=== PATIENT | male | born 1970 | race Caucasian/White ===

== ENCOUNTER 2019-03-04 09:49 | Inpatient (IN) ==
--- NOTE | 2019-03-04 09:59 | PDOC ---
Nausea/Vomiting/Diarrhea HPI - General Chief Complaint: Nausea / Vomiting / Diarrhea Stated Complaint: VOMITING SINCE NOON 03/03/19 Date Seen by Provider: 03/04/19 Time Seen by Provider: 09:54 Source: POSITIVE: Patient Exam Limitations: POSITIVE: No limitations Nurse's Notes Reviewed & Considered: Yes - History of Present Illness Initial Comments: This is a well-developed, well-nourished, very pleasant, 48-year-old male, complaining of nausea vomiting and abdominal pain. Patient with generalized abdominal pain that began yesterday and escalated overnight. At approximately midnight he developed vomiting and states that he has vomited so much that now is following up only bile and having dry heaves. He denies any blood in his emesis. He denies any diarrhea. He denies any fever or sweats but does have chills. He denies headache, no ringing in his ears, no blurry vision, no runny nose, no sore throat, no chest pain or shortness of breath, no cough, no hematuria or dysuria, no myalgias or arthralgias, no rashes. 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 He is uncertain as to the etiology of the ischemic bowel. Presently his pain is in a band across the periumbilical region. He states the greatest pain is in his left abdomen. Body Location Affected: REPORTS: Abdomen Timing: REPORTS: Abrupt Duration: <24 hours Severity: Severe Quality: REPORTS: Cramping, "Pain" Abdominal Pain Onset Location: REPORTS: Generalized abdomen Abdominal Pain Radiation: REPORTS: RLQ, LLQ, Periumbilical Context: REPORTS: None Modifying Factors: improves with: Nothing Associated Symptoms: REPORTS: Vomiting, Frequent Vomiting, Periumbilical Pain Similar Symptoms Previously: No Recent Care Received: REPORTS: Denies Any Prior Injuries Related to Current Complaint?: No - Patient Home Medications Home Medications: Home Medications amlodipine 10 mg tablet 10 mg PO QDAY #30 tab 02/04/19 diclofenac 1 % topical gel 2 g TOPICAL QID PRN #100 g 03/02/19 nebivolol 20 mg tablet 20 mg PO BID #60 tab 03/02/19 trazodone 50 mg tablet 50 mg PO QDAY #30 tab 03/02/19 venlafaxine ER 150 mg capsule,extended release 24 hr 150 mg PO QDAY #30 cap 03/02/19 - Patient Allergies Allergies/Adverse Reactions: Allergies Allergy/AdvReac Type Severity Reaction Status Date / Time No Known Allergies Allergy Verified 03/04/19 11:56 ROS - Limitations ROS Limitations: No Limitations Constitution: REPORTS: Chills Cardiovascular: REPORTS: Denies Cardiac Symptoms Respiratory: REPORTS: Denies Resp Symptoms Neurological: REPORTS: Denies Neuro Symptoms Gastrointestinal: REPORTS: Abdominal Pain, Nausea, Vomitting Endocrine: REPORTS: Denies Symptoms Musculoskeletal: REPORTS: Denies MS Symptoms Genitourinary: REPORTS: Denies Symptoms Eyes: REPORTS: Denies Symptoms ENT: REPORTS: Denies Symptoms Skin: REPORTS: Denies Skin Symptoms Lympathic: REPORTS: Denies Lympathic Symptoms Immunologic: POSITIVE: Denies Symptoms Psychiatric: POSITIVE: Denies Psych Symptoms Nausea/Vomiting/Diarrhea Exam - General Appearance General Appearance: POSITIVE: Alert, Cooperative, No Evidence of Trauma, Moderate Distress - HEENT HEENT: POSITIVE: Head Inspection Nml, Eyes Inspection Nml, Ears Inspection Nml, Nose Inspection Nml, Oral/Dental Inspect. Nml, Pharynx Inspect. Nml, PERRL, EOMI - Neck Neck: POSITIVE: Supple, Normal Inspection, Non Tender - Respiratory Respiratory: POSITIVE: No Respiratory Distress, Breath Sounds Normal, Chest Non- Tender - Cardiovascular Cardiovascular: POSITIVE: Heart Sounds Normal, Strong Pulses, Bradycardia Peripheral Pulses: Radial (R): 4+ - Chest Chest: POSITIVE: Non Tender - Abdomen Abdomen: Soft: (All Quadrants), No Splenomegaly: (All Quadrants), No Hepatomegaly: (All Quadrants), No Guarding: (LUQ), (RUQ), No Rebound: (LUQ), (RUQ), (LLQ), No Palpable Pulse: (All Quadrants), No Palpabale Mass: (All Quadrants), No Distention: (All Quadrants), No Rigidity: (All Quadrants), Tenderness Noted: (All Quadrants), Hypoactive Bowel Sounds: (All Quadrants), Guarding: (RLQ), (LLQ), Rebound: (RLQ) - Back Back: POSITIVE: Normal Inspection - Skin Skin: POSITIVE: Intact, Normal For Race, Warm, Dry, No Rash - Extremities Extremity: Non-Tender: (All Extremities), Normal ROM: (All Extremities), Normal Inspection: (All Extremities), Pelvis Stable: (All Extremities) - Neurological / Psychological Neurological: POSITIVE: Affect Apporpriate, Oriented X3, Motor Normal, Sensation Normal N/V/D Progress - Results Reviewed by me Xrays/CTs/US Reviewed by me: Yes Discussed with Radiologist: Yes Lab Results Reviewed by Me: Yes CBC and BMP: 03/04/19 10:00 03/04/19 10:00 Lab Results:: Laboratory Results 03/04/19 03/04/19 03/04/19 10:00 10:00 10:00 WBC 17.20 H RBC 5.50 Hgb 16.5 Hct 46.7 MCV 84.9 MCH 30.0 MCHC 35.3 RDW Std Deviation 39.4 RDW Coeff of Renita 12.6 Plt Count 345 MPV 9.5 Immature Gran % (Auto) 0.2 Neut % (Auto) 89.3 H Lymph % (Auto) 8.2 L [place] % (Auto) 2.2 L Eos % (Auto) 0 Baso % (Auto) 0.1 Immature Gran # (Auto) 0.03 Neut # (Auto) 15.37 Lymph # (Auto) 1.41 [place] # (Auto) 0.37 Eos # (Auto) 0 Baso # (Auto) 0.02 WBC Morphology Comment Normal morphology Plt Morphology Comment Normal morphology RBC Morph Comment Normal morphology ESR 2 VBG pH VBG pCO2 VBG HCO3 VBG Base Excess Sodium 139 Potassium 3.8 Chloride 102 Carbon Dioxide 24 Anion Gap 13 BUN 21 Creatinine 1.0 Estimated GFR > 60 BUN/Creatinine Ratio 21.00 H Glucose 152 H Calculated Osmolality 293.0 H Lactic Acid 1.9 Calcium 10.5 Magnesium 2.1 Total Bilirubin 1.0 AST 28 ALT 19 L Alkaline Phosphatase 97 C-Reactive Protein 1.5 H Total Protein 8.8 H Albumin 5.4 H Globulin 3.4 Albumin/Globulin Ratio 1.50 Amylase 74 Lipase 197 03/04/19 10:04 WBC RBC Hgb Hct MCV MCH MCHC RDW Std Deviation RDW Coeff of Renita Plt Count MPV Immature Gran % (Auto) Neut % (Auto) Lymph % (Auto) [place] % (Auto) Eos % (Auto) Baso % (Auto) Immature Gran # (Auto) Neut # (Auto) Lymph # (Auto) [place] # (Auto) Eos # (Auto) Baso # (Auto) WBC Morphology Comment Plt Morphology Comment RBC Morph Comment ESR VBG pH 7.58 H VBG pCO2 25 L VBG HCO3 24 VBG Base Excess 2 Sodium Potassium Chloride Carbon Dioxide Anion Gap BUN Creatinine Estimated GFR BUN/Creatinine Ratio Glucose Calculated Osmolality Lactic Acid Calcium Magnesium Total Bilirubin AST ALT Alkaline Phosphatase C-Reactive Protein Total Protein Albumin Globulin Albumin/Globulin Ratio Amylase Lipase - Patient's Progress Pain Medication Addressed: POSITIVE: Yes Re-examine Time: 12:07 Status: POSITIVE: Improved MDM / ED Course: Patient was evaluated, an IV started, blood drawn and sent to the lab for studies, CT examination of his abdomen was obtained. Findings: CBC shows a white count was 17.2 and a left shift with neutrophils of 89.3%, lymphocytes low at 8.2%, monocytes low at 2.2%. Platelets hemoglobin and hematocrit are normal. ESR is 2 and CRP is elevated at 1.5. Amylase is 74 and lipase is 197. Blood gases show a pH of 7.58, PCO2 of 25, bicarbonate of 24, base excess is 2. Lactic acid is 1.9 and magnesium is 2.1. CMP shows glucose 152, ALT of 19, total protein of 8.8, albumin of 5.4. CT scan of his abdomen shows high-grade small bowel obstruction. Assessment: Small bowel obstruction. Plan: I have discussed patient with both Dr. Darden and Dr. Cornejo. Dr. Cornejo admitting, and Dr. Darden will see the patient in consultation on the floor. - Consult Consult (If Yes, Name of Consulting MD & Time Called): Yes Consulting MD will see pt:: POSITIVE: [facility] Admit Counseled: POSITIVE: Patient, Family, RE: Lab Results, RE: Radiology Results, RE: DX, RE: Need for F/U Patient Care Time - Estimated PCT Patient Care Time (In Minutes): 45 Vital Signs - Recent Vital Signs Vital Signs: Vital Signs (Last 8 hours) Temp Pulse Resp BP Pulse Ox 03/04/19 10:28 96.9 F 51 L 14 159/106 99 - VS Reviewed Vital Signs Reviewed: Yes Discharge Clinical Impression: Small bowel obstruction Discharge Disposition: Admit to Inpatient Condition: Stable Follow Up With: Gabino Flores DNP [Primary Care Provider] - Date Decision to Admit to Inpatient: 03/04/19 Time Decision to Admit to Inpatient: 12:06
[2019-03-04] MEDS ORDERED: ONDANSETRON 4 MG/2 ML VIAL IVP ONE (10:00)
[2019-03-04] MEDS ORDERED: MORPHINE SULFATE 4 MG/1 ML IVP ONE ×2 (10:01→11:46)
[2019-03-04] MEDS ORDERED: Sodium Chloride 0.9% 1,000 ML PRIMARY IV ONE (10:01)
[2019-03-04 10:12] LABS: BASOPHILS # (AUTO) 0.02 10*3/UL; BASOPHILS % (AUTO) 0.1 % (0-1); EOSINOPHILS # (AUTO) 0 10*3/UL; EOSINOPHILS % (AUTO) 0 % (0-8); Hematocrit [HCT] 46.7 % (42.0-52.0); Hemoglobin [HGB] 16.5 g/dL (14.0-18.0); LYMPHOCYTES # (AUTO) 1.41 10*3/uL; MEAN CORPUSCULAR HGB CONC 35.3 g/dL (33-37); MEAN CORPUSCULAR VOLUME 84.9 FL (80-90); MEAN PLATELET VOLUME 9.5 FL (7.4-12.2); MONOCYTES # (AUTO) 0.37 10*3/UL (0.3-0.8); MONOCYTES % (AUTO) 2.2 % (5-15); NEUTROPHILS # (AUTO) 15.37 10*3/UL; NEUTROPHILS % (AUTO) 89.3 % (50-80)
[2019-03-04 10:14] LABS: VENOUS PH 7.58 (7.32-7.42)
[2019-03-04 10:27] LABS: BLOOD UREA NITROGEN 21 mg/dL (7-22); LIPASE 197 IU/L (23-300); SERUM ALBUMIN 5.4 g/dL (3.5-4.8)
[2019-03-04 10:28] LABS: PLATELET MORPHOLOGY COMMENT NORMAL MORPHOLOGY (NORM); RBC MORPHOLOGY COMMENT NORMAL MORPHOLOGY (NORM); WBC MORPHOLOGY COMMENT NORMAL MORPHOLOGY (NORM)
[2019-03-04 10:58] LABS: Erythrocyte Sediment Rate 2 MM/HR (0-15)
--- NOTE | 2019-03-04 11:53 | DI ---
CT ABDOMEN SCAN WITH IV CONTRAST, 03/04/2019 10:01 AM : Clinical History: Abdominal pain. Previous Exam: None at this facility. IV Contrast: 75 mL of Isovue 300. Oral Contrast: No oral contrast ordered. Rectal Contrast: No rectal contrast ordered. Lungs: No infiltrate or effusion. Liver: There are multiple low-density lesions scattered throughout the right and left lobes of the li cally in these range in size between 2-3-5 mm in diameter and are consistent with multiple small cysts. Gallbladder: Grossly normal. Adrenal Glands: Normal. Spleen: Normal. Pancreas: Normal. Kidneys: Normal size, shape, position and contour. No hydronephrosis or hydroureter. No renal or uret eral calculi. Masses: None. Lymph Nodes: Normal. Ascites: No ascites. Free Air: None. Spine: Normal lower thoracic and lumbar spine. READING: Normal CT abdomen scan. CT PELVIS SCAN WITH IV CONTRAST, 03/04/2019 10:01 AM: Clinical History: See above. Previous Exam: None at this facility. Contrast: Same bolus used for CT scans of the abdomen. Masses: No masses or enhancing lesions. Ascites: Small amount of fluid is present in the pelvis. Free Air: None. Lymph Nodes: No adenopathy. Appendix: Not identified. No cecal or right lower quadrant inflammatory mass. Small Bowel: The proximal and distal portions of the small bowel are decompressed but the mid small b owel is markedly dilated measuring up to 4 cm in diameter consistent with a high-grade partial small bowel obstruction. Colon: Stool is present in the cecum and ascending colon but the remainder of the colon is completely decompressed. The patient apparently is status post resection of the sigmoid colon with an end-to-en d anastomosis at the level of S1. Bladder: Normal. Hernias: None. Bony Pelvis: Normal sacrum, pelvic bones, and hips. READIN. High-grade partial small bowel obstruction. 2. Status post resection of the sigmoid colon with an end to end anastomosis at the level of S1.
--- NOTE | 2019-03-04 13:55 | CONSULT ---
Consult Note - Consult Consult Date: 03/04/19 Reason for Consult: PreOp Consulation : General Surgery Requesting Physician: Dr. Stu Moy Primary Care Provider: Gabino Flores DNP - History of Present Illness History of Present Illness: This is 48-year-old male who yesterday started having abdominal pain. He states that is crampy and is feeling bloated. At midnight he started having vomiting. He states that worse from 3 AM therefore he came to the emergency department. Patient states that he still passing flatus. He states that since it with the NG tube down they fell a lot better. Patient has CT scan that showed a partial small bowel obstruction. Patient denies any hematochezia hematemesis or melena. Review of Systems - Constitutional Constitutional: REPORTS: Negative System Review, General Health Excellent - Integumentary Integumentary: REPORTS: Negative System Review - Eye Exam Eye Exam: REPORTS: Negative System Review - Ear/Nose Exam Ear/Nose Exam: REPORTS: Negative System Review - Mouth/Throat Mouth/Throat Exam: REPORTS: Negative System Review - Respiratory Respiratory: REPORTS: Negative System Review - Cardiovascular Cardiovascular: REPORTS: Negative System Review - Gastrointestinal Gastrointestinal / Abdominal: REPORTS: Nausea, Vomiting, Abdominal Pain - Genitourinary Genitourinary: REPORTS: Negative System Review - Musculoskeletal Musculoskeletal: REPORTS: Negative System Review - Hematlogic / Lymphatic Hematologic / Lymphatic: REPORTS: Negative System Review - Neurological Neurologic: REPORTS: Negative System Review - Psychiatric Psychiatric: REPORTS: Negative System Review Past Medical History Medical History: Hypertension and anxiety Surgical History: Sigmoid colectomy and appendectomy Pertinent Family History: Negative Tobacco Use: Never Smoker In the Past 12 Months, Have Used or Abuse Any of the Following Substance: None Medication / Allergies Home Medications: Home Medications Medication Instructions Recorded Confirmed Type amlodipine 10 mg tablet 10 mg PO QDAY #30 tab 02/04/19 03/04/19 Rx diclofenac 1 % topical gel 2 g TOPICAL QID PRN #100 g 03/02/19 03/04/19 Rx nebivolol 20 mg tablet 20 mg PO BID #60 tab 03/02/19 03/04/19 Rx trazodone 50 mg tablet 50 mg PO QDAY #30 tab 03/02/19 03/04/19 Rx venlafaxine ER 150 mg 150 mg PO QDAY #30 cap 03/02/19 03/04/19 Rx capsule,extended release 24 hr Allergies/Adverse Reactions: Allergies Allergy/AdvReac Type Severity Reaction Status Date / Time No Known Allergies Allergy Verified 03/04/19 11:56 Results - Labs CBC and BMP: 03/04/19 10:00 03/04/19 10:00 Exam - Vitals Vital Signs: Vital Signs Temperature 96.9 F Temperature Source Temporal Artery Scan Pulse Rate [Pulse Oximeter] 51 Respiratory Rate 14 Blood Pressure [Left Arm] 159/106 Pulse Ox 99 Oxygen Delivery Method Room Air Height 6 ft 1 in Weight 185 lb - General General Appearance: No Acute Distress, Cooperative - Head Head Exam: Normal Inspection - Eye Eye Exam: POSITIVE: PERRL, EOMI - Respiratory Respiratory Exam: POSITIVE: Clear to Auscultation - Bilaterally, Breathing Non Labored - GI/Abdominal GI/Abdominal Exam: POSITIVE: Normal Bowel Sounds, Non Tender, Non Distended, Soft Additional GI/Abdominal Exam Details: No incisional hernias No inguinal hernias No rigidity or guarding noted Assessment and Plan - Patient Problems (1) Small bowel obstruction Current Visit: Yes Status: Acute Code(s): K56.609 - Unspecified intestinal obstruction, unspecified as to partial versus complete obstruction - Assessment / Plan Additional Assessment/Plan Details: At this point the patient does look like he has his partial small bowel obstruction. Given the fact that his abdomen soft nontender and he is feeling better since an NG tube in place I do not think surgery is indicated at this césar e. Will get a normal films in the a.m. Nothing by mouth. NG low intermittent suction. IV fluids as needed.
[2019-03-04] MEDS ORDERED: DOCUSATE 100 MG CAPSULE PO PRN (14:30)
[2019-03-04] MEDS ORDERED: CALCIUM CARBONATE 500 MG (TUMS) CHEWABLE TABLET PO PRN (14:30)
[2019-03-04] MEDS ORDERED: HYDROmorphone 2 MG/1 ML IVP PRN (14:30)
[2019-03-04] MEDS ORDERED: LIDOCAINE W/ SODIUM BICARB 0.5 ML SYR SUBD PRN (14:30)
[2019-03-04] MEDS ORDERED: ACETAMINOPHEN 325 MG TABLET PO PRN (14:30)
[2019-03-04] MEDS: D5-1/2NS + 20mEq KCL 1,000 ML PRIMARY IV SCH ×2 (15:00→22:49)
[2019-03-04] MEDS: HYDROmorphone 2 MG/1 ML IVP PRN ×2 (17:42→21:09)
[2019-03-04] MEDS: ONDANSETRON 4 MG/2 ML VIAL IVP PRN (17:49)
--- NOTE | 2019-03-04 19:38 | PDOC ---
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 He came in stating that he had acute onset of abdominal pain yesterday, associated with nausea and vomiting. He tried Pepto-Bismol without any help. He denied any fevers, but due to the continued pain with nausea and vomiting he came in for evaluation. He intermittently has passed gas and not had any flatulence, he has not had a bowel movement lately. A CT scan was significant for small bowel obstruction that was called high-grade on the reading. An NG tube was placed and he immediately had 500 mL of gastric contents removed. He has been on low intermittent wall suction and does feel better but has had some nausea through the day. A consult with surgery and he was seen by surgeon and was felt that we could manage conservatively at least initially. Lactic acid was normal. His pain was improved with morphine in the emergency room. He had an anastomosis problem that was treated with colonoscopy a couple of years ago, but has not had any recurrent abdominal surgeries since then. Past Medical History Medical History: Hypertension and anxiety Surgical History: Sigmoid colectomy and appendectomy, colonoscopy to repair some sort of anastomotic issue Pertinent Family History: No family history of colon cancer or blood clots. Past Social History: Does not smoke or drink alcohol. Recently . Has 2 children described as healthy. 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 Tobacco Use: Never Smoker In the Past 12 Months, Have Used or Abuse Any of the Following Substance: None Alcohol Use: None Medication / Allergies Home Medications: Home Medications Medication Instructions Recorded Confirmed Type amlodipine 10 mg tablet 10 mg PO QDAY #30 tab 02/04/19 03/04/19 Rx diclofenac 1 % topical gel 2 g TOPICAL QID PRN #100 g 03/02/19 03/04/19 Rx nebivolol 20 mg tablet 20 mg PO BID #60 tab 03/02/19 03/04/19 Rx trazodone 50 mg tablet 50 mg PO QDAY #30 tab 03/02/19 03/04/19 Rx venlafaxine ER 150 mg 150 mg PO QDAY #30 cap 03/02/19 03/04/19 Rx capsule,extended release 24 hr Allergies/Adverse Reactions: Allergies Allergy/AdvReac Type Severity Reaction Status Date / Time No Known Allergies Allergy Verified 03/04/19 11:56 Review of Systems - Review of Systems All Systems: Reviewed & No Additional Complaints Except as Stated (I did a 12 point review systems and it was negative other than that discussed below and in the history of present illness.) Exam - Vitals Vital Signs: Vital Signs Temperature 97.2 F Temperature Source Temporal Artery Scan Pulse Rate [Pulse Oximeter] 67 Respiratory Rate 18 Blood Pressure [Left Arm] 132/80 Pulse Ox 92 Oxygen Delivery Method Room Air Height 6 ft 1 in Weight 185 lb - General General Appearance: No Acute Distress, Cooperative - Head Head Exam: Normal Inspection, Normocephalic, Atraumatic - Eye Eye Exam: POSITIVE: No Scleral Icterus - ENT ENT Exam: POSITIVE: Mucous Membranes Moist - Neck Neck Exam: Normal Inspection, No Tenderness, No Lymphadenopathy, No Thyromegaly, JVP is not Raised - Respiratory Respiratory Exam: POSITIVE: Clear to Auscultation - Bilaterally, Breathing Non Labored - Cardiovascular Cardiovascular Exam: POSITIVE: RRR, No Murmur, No Clicks, No Gallops, No Rubs, No JVD - GI/Abdominal GI/Abdominal Exam: POSITIVE: Non Tender, Non Distended, Soft, Hypoactive Bowel Sounds Additional GI/Abdominal Exam Details: NG tube are in place with low intermittent wall suctioning at about 500 mL out here for a total of about 1000 - Rectal Rectal Exam: POSITIVE: Deferred - External Exam: POSITIVE: Deferred Exam: POSITIVE: Deferred - Extremities Extremities Exam: POSITIVE: No Clubbing Present, No Edema Present, No Cyanosis Present - Back Back Exam: POSITIVE: No CVA Tenderness - Neurological Neurological Exam: POSITIVE: Alert, Oriented x 3, No Facial Droop, Speech Intact / Clear, Moves All Extremities Equally - Psychiatric Psychiatric Exam: POSITIVE: Normal Affect, Normal Mood Results - Labs CBC and BMP: 03/04/19 10:00 03/04/19 10:00 Additional Lab Results: Laboratory Results 03/04/19 03/04/19 03/04/19 10:00 10:00 10:00 WBC 17.20 H RBC 5.50 Hgb 16.5 Hct 46.7 MCV 84.9 MCH 30.0 MCHC 35.3 RDW Std Deviation 39.4 RDW Coeff of Renita 12.6 Plt Count 345 MPV 9.5 Immature Gran % (Auto) 0.2 Neut % (Auto) 89.3 H Lymph % (Auto) 8.2 L [place] % (Auto) 2.2 L Eos % (Auto) 0 Baso % (Auto) 0.1 Immature Gran # (Auto) 0.03 Neut # (Auto) 15.37 Lymph # (Auto) 1.41 [place] # (Auto) 0.37 Eos # (Auto) 0 Baso # (Auto) 0.02 WBC Morphology Comment Normal morphology Plt Morphology Comment Normal morphology RBC Morph Comment Normal morphology ESR 2 VBG pH VBG pCO2 VBG HCO3 VBG Base Excess Sodium 139 Potassium 3.8 Chloride 102 Carbon Dioxide 24 Anion Gap 13 BUN 21 Creatinine 1.0 Estimated GFR > 60 BUN/Creatinine Ratio 21.00 H Glucose 152 H Calculated Osmolality 293.0 H Lactic Acid 1.9 Calcium 10.5 Magnesium 2.1 Total Bilirubin 1.0 AST 28 ALT 19 L Alkaline Phosphatase 97 C-Reactive Protein 1.5 H Total Protein 8.8 H Albumin 5.4 H Globulin 3.4 Albumin/Globulin Ratio 1.50 Amylase 74 Lipase 197 03/04/19 03/04/19 10:04 15:57 WBC RBC Hgb Hct MCV MCH MCHC RDW Std Deviation RDW Coeff of Renita Plt Count MPV Immature Gran % (Auto) Neut % (Auto) Lymph % (Auto) [place] % (Auto) Eos % (Auto) Baso % (Auto) Immature Gran # (Auto) Neut # (Auto) Lymph # (Auto) [place] # (Auto) Eos # (Auto) Baso # (Auto) WBC Morphology Comment Plt Morphology Comment RBC Morph Comment ESR VBG pH 7.58 H VBG pCO2 25 L VBG HCO3 24 VBG Base Excess 2 Sodium Potassium Chloride Carbon Dioxide Anion Gap BUN Creatinine Estimated GFR BUN/Creatinine Ratio Glucose Calculated Osmolality Lactic Acid Calcium Magnesium 2.2 Total Bilirubin AST ALT Alkaline Phosphatase C-Reactive Protein Total Protein Albumin Globulin Albumin/Globulin Ratio Amylase Lipase - Imaging Status: Image Reviewed by Me (I looked at the CT scan of the abdomen and pelvis. There appears to be some decompressed small bowel and dilated loops of small bowel consistent with a possible obstruction. I read the radiology report as well.) Assessment and Plan - Patient Problems (1) Small bowel obstruction Current Visit: Yes Status: Acute Code(s): K56.609 - Unspecified intestinal obstruction, unspecified as to partial versus complete obstruction (2) Anxiety Current Visit: Yes Status: Chronic Code(s): F41.9 - Anxiety disorder, u nspecified (3) Hypertension Current Visit: Yes Status: Chronic Code(s): I10 - Essential (primary) hypert ension Qualifiers: Hypertension type: essential hypertension Qualified Code(s): I10 - Essential (primary) hypertension - Assessment / Plan Additional Assessment/Plan Details: Admit the patient. Consult surgery. IV fluids, electrolyte replacement, as indicated, and check labs in a.m. Given the history of the prior sigmoid infarction, with no clear etiology, I think it would be reasonable to do a thrombophilia profile and make sure that we do not have the patient with factor V Leiden or antithrombin III deficiency as an example. I told the patient that this profile may take a week or so to get back and that he'll have to review this with his primary provider to make decisions about the meaning of that profile and whether or not to consider anticoagulation. This would be a very complex choice and I discussed this with the patient giving the risks and benefits of bleeding versus potential clot prevention should he have a positive profile. Nothing by mouth and NG tube to low intermittent wall suction. Pain medications, through the IV, and antiemetics as well. Patient agrees to proceed with the plan above.
[2019-03-04] MEDS: ATENOLOL 50 MG TABLET PO SCH (20:10)
[2019-03-04] MEDS: traZODone Tab 50 MG TAB PO SCH (20:10)
[2019-03-05 04:48] LABS: BASOPHILS # (AUTO) 0.01 10*3/UL; BASOPHILS % (AUTO) 0.2 % (0-1); EOSINOPHILS # (AUTO) 0.14 10*3/UL; EOSINOPHILS % (AUTO) 2.2 % (0-8); Hematocrit [HCT] 44.4 % (42.0-52.0); Hemoglobin [HGB] 14.8 g/dL (14.0-18.0); LYMPHOCYTES # (AUTO) 1.67 10*3/uL; MEAN CORPUSCULAR HEMOGLOBIN 30.1 PG (27-31); MEAN CORPUSCULAR HGB CONC 33.3 g/dL (33-37); MEAN CORPUSCULAR VOLUME 90.2 FL (80-90); MEAN PLATELET VOLUME 9.8 FL (7.4-12.2); MONOCYTES # (AUTO) 1.49 10*3/UL (0.3-0.8); MONOCYTES % (AUTO) 22.9 % (5-15); NEUTROPHILS # (AUTO) 3.17 10*3/UL; NEUTROPHILS % (AUTO) 48.7 % (50-80); RED BLOOD COUNT 4.92 10^6/uL (4.70-6.10)
[2019-03-05 05:02] LABS: PLATELET MORPHOLOGY COMMENT NORMAL MORPHOLOGY (NORM); WBC MORPHOLOGY COMMENT NORMAL MORPHOLOGY (NORM)
[2019-03-05 05:03] LABS: BLOOD UREA NITROGEN 19 mg/dL (7-22); BUN/CREATININE RATIO 17.27 (6-20); SERUM ALBUMIN 3.8 g/dL (3.5-4.8)
[2019-03-05] MEDS: D5-1/2NS + 20mEq KCL 1,000 ML PRIMARY IV SCH ×3 (06:47→23:51)
[2019-03-05] MEDS: HYDROmorphone 2 MG/1 ML IVP PRN ×2 (06:47→15:48)
--- NOTE | 2019-03-05 08:51 | DI ---
KUB, 03/05/2019 7:00 AM: Clinical History: Followup fraction. Previous Exam: None at this facility. Soft Tissues: Normal. Bowel Pattern: Normal bowel gas pattern, psoas margins, and flank stripes. No dilated loops of small bowel are noted. Free Air: None. Ascites: None. Radiodensities: No abnormal radiodensities. Contrast is present in the bladder from the recent CT sca n of the abdomen and pelvis with IV contrast. Bones: Normal. Reading: Normal KUB exam.
[2019-03-05] MEDS: VENLAFAXINE HCL XR 150 MG CAP PO SCH (09:31)
[2019-03-05] MEDS: ATENOLOL 50 MG TABLET PO SCH ×2 (09:31→20:20)
--- NOTE | 2019-03-05 13:38 | PDOC(PROG) ---
Date of Service: 03/05/19 Time of Service: 13:35 Interval History: Patient seen and evaluated earlier today. No complaints of chest pain, shortness of breath. Nausea has improved, abdominal pain has improved. No flatulence and no stools. Objective : Data - Labs CBC and BMP: 03/05/19 03:59 03/05/19 03:59 Additional Lab Results: 03/05/19 03:59 Magnesium 2.6 H Total Bilirubin 0.7 AST 31 ALT 15 L Alkaline Phosphatase 59 Total Protein 6.6 Albumin 3.8 Globulin 2.7 Objective : Exam - General General Appearance: No Acute Distress, Cooperative Additional General Exam Details: Vital Signs - Last Taken Temperature 97.5 F 03/05/19 12:34 Pulse Rate 56 L 03/05/19 12:34 Respiratory Rate 16 03/05/19 12:34 Blood Pressure 111/77 03/05/19 12:34 Pulse Ox 94 03/05/19 12:34 - Eye Eye Exam: No Scleral Icterus - ENT ENT Exam: Mucous Membranes Moist - Neck Neck Exam: JVP is not Raised - Respiratory Respiratory Exam: Clear to Auscultation - Bilaterally, Breathing Non Labored - Cardiovascular Cardiovascular Exam: No Murmur, No Clicks, No Gallops, No Rubs, Bradycardia, No JVD - GI/Abdominal GI/Abdominal Exam: Non Tender, Non Distended, Soft, Diminished Bowel Sounds, Hypoactive Bowel Sounds - Extremities Extremities Exam: No Clubbing Present, No Edema Present, No Cyanosis Present - Neurological Neurological Exam: Alert, Oriented x 3, No Facial Droop, Speech Intact / Clear, Moves All Extremities Equally Assessment and Plan - Patient Problems (1) Small bowel obstruction Current Visit: Yes Status: Acute Code(s): K56.609 - Unspecified intestinal obstruction, unspecified as to partial versus complete obstruction (2) Anxiety Current Visit: Yes Status: Chronic Code(s): F41.9 - Anxiety disorder, unspecified (3) Hypertension Current Visit: Yes Status: Chronic Code(s): I10 - Essential (primary) hyp ertension Qualifiers: Hypertension type: essential hypertension Qualified Code(s): I10 - Essential (primary) hypertension - Assessment / Plan Additional Assessment/Plan Details: At this point, he had at least 400 mL out from the last time I saw him yesterday on NG tube. It still over 250 mL so I'll leave the NG tube placed. Any diet advancement would be as per surgery. Continue IV fluids, electrolyte replacement, and check labs again in a.m. along with acute abdominal series with NG tube clamping prior procedure.
--- NOTE | 2019-03-05 14:58 | PDOC(PROG) ---
Date of Service: 03/05/19 Time of Service: 14:55 Interval History: Feels much better with the NG tube in. Still has some abdominal tenderness and cramping. No bowel movement. He reports he has passed some gas. Not nauseated. 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 He was unable to have a colonoscopy. He went to surgery and had a colectomy with colostomy. That was subsequently reversed. He has not had any problems like this since. He denies any recent dietary indiscretion. Objective : Data - Labs CBC and BMP: 03/05/19 03:59 03/05/19 03:59 - Imaging Imaging Details: Today's x-ray was read as normal. It does not show was upper abdomen and her diaphragms. I think there is still some dilated loops of small bowel but less so. There is gas and what appears to be stool in the rectum. - Vital Signs Vital Signs and I&O: Vital Signs - Last Taken Temperature 97.5 F 03/05/19 12:34 Pulse Rate 56 L 03/05/19 12:34 Respiratory Rate 16 03/05/19 12:34 Blood Pressure 111/77 03/05/19 12:34 Pulse Ox 94 03/05/19 12:34 Intake and Output (24hr x 4 totals) 03/03/19 03/04/19 03/05/19 03/06/19 05:59 05:59 05:59 05:59 Intake Total 2585 / 2585 Output Total 800 / 800 850 / 850 Balance 1785 / 1785 -850 / -850 Objective : Exam - General General Appearance: Cooperative, Mild Distress - Respiratory Respiratory Exam: Clear to Auscultation - Bilaterally, Breathing Non Labored - Cardiovascular Cardiovascular Exam: RRR, No Murmur - GI/Abdominal GI/Abdominal Exam: Soft, Diminished Bowel Sounds Additional GI/Abdominal Exam Details: Diffusely tender. Nonfocal. Not a surgical abdomen. Minimal distention. - Rectal Rectal Exam: Deferred - Neurological Neurological Exam: Alert, Oriented x 3 - Psychiatric Psychiatric Exam: Normal Affect, Normal Mood Assessment and Plan - Patient Problems (1) Partial obstruction of small intestine Current Visit: Yes Status: Acute Priority: High Onset Date: 03/03/19 Comment: Improved. NG tube has a total of 900 mL out since insertion. A little over 100 out since 6 AM this morning. Patient is passing a little bit of gas. Agree with leaving the NG tube in place. Three-way abdominal series and labs ordered for the morning. If he continues to pass gas and/or has a bowel movement and the x-rays improved would discontinue the NG tube and start clear liquids. If not the next step would be a Gastrografin challenge. If he has improved there is no reason for me to see him in the morning. If not please call and order the Gastrografin challenge and I will see him. Code(s): K56.600 - Partial intestinal obstruction, unspecified as to cause
[2019-03-05] MEDS: ONDANSETRON 4 MG/2 ML VIAL IVP PRN (15:48)
[2019-03-05] MEDS: traZODone Tab 50 MG TAB PO SCH (20:21)
[2019-03-06] MEDS: ONDANSETRON 4 MG/2 ML VIAL IVP PRN ×2 (00:22→08:52)
[2019-03-06] MEDS: HYDROmorphone 2 MG/1 ML IVP PRN ×7 (00:26→21:17)
[2019-03-06 05:20] LABS: BASOPHILS # (AUTO) 0.01 10*3/UL; BASOPHILS % (AUTO) 0.2 % (0-1); EOSINOPHILS # (AUTO) 0.13 10*3/UL; EOSINOPHILS % (AUTO) 2.2 % (0-8); Hematocrit [HCT] 42.3 % (42.0-52.0); Hemoglobin [HGB] 13.9 g/dL (14.0-18.0); LYMPHOCYTES # (AUTO) 1.55 10*3/uL; MEAN CORPUSCULAR HEMOGLOBIN 30.5 PG (27-31); MEAN CORPUSCULAR HGB CONC 32.9 g/dL (33-37); MEAN PLATELET VOLUME 9.6 FL (7.4-12.2); MONOCYTES # (AUTO) 1.05 10*3/UL (0.3-0.8); MONOCYTES % (AUTO) 18.2 % (5-15); NEUTROPHILS # (AUTO) 3.03 10*3/UL; NEUTROPHILS % (AUTO) 52.4 % (50-80); RED BLOOD COUNT 4.55 10^6/uL (4.70-6.10)
[2019-03-06 05:32] LABS: PLATELET MORPHOLOGY COMMENT NORMAL MORPHOLOGY (NORM); RBC MORPHOLOGY COMMENT NORMAL MORPHOLOGY (NORM); WBC MORPHOLOGY COMMENT NORMAL MORPHOLOGY (NORM)
[2019-03-06 05:41] LABS: BLOOD UREA NITROGEN 19 mg/dL (7-22); SERUM ALBUMIN 3.3 g/dL (3.5-4.8)
[2019-03-06] MEDS: VENLAFAXINE HCL XR 150 MG CAP PO SCH ×2 (08:52→11:51)
[2019-03-06] MEDS: ATENOLOL 50 MG TABLET PO SCH ×2 (08:52→11:51)
[2019-03-06] MEDS: D5-1/2NS + 20mEq KCL 1,000 ML PRIMARY IV SCH ×2 (08:53→22:18)
--- NOTE | 2019-03-06 09:43 | DI ---
ACUTE ABDOMINAL SERIES: HISTORY: 48-year-old male with SBO. COMPARISON: Abdomen and pelvis CT with intravenous contrast 03/04/2019; one view abdomen 03/05/2019. FINDINGS: Supine and upright views of the abdomen demonstrate long air- fluid levels within several small as well as probable large bowel loops in the upper and mid abdomen; there is at least mild to moderate dilation of the partially gas-filled small bowel loops.. No obvious ascites or pneumoperitoneum. Surgical clips/anastomotic suture is noted in the pelvis, as before. New NG tube terminates in the region of the gastric body. Frontal view of the chest demonstrates clear lungs. Heart size is normal. No obvious pneumothorax or effusion. IMPRESSION: Persistent at least partial mechanical SBO.
--- NOTE | 2019-03-06 10:25 | PDOC(PROG) ---
Date of Service: 03/06/19 Time of Service: 10:21 Interval History: Feels much more nauseous today. Has tender abdomen. No chest pain and no shortness of breath. Not passing any gas. Objective : Data - Labs CBC and BMP: 03/06/19 04:13 03/06/19 04:13 - Imaging X-Ray Status: Image Reviewed by Me (On acute abdominal series review, I see some air- fluid levels and some dilated loops of small bowel and it looks decompressed distally. I think there is still small bowel obstruction.) Objective : Exam - General General Appearance: No Acute Distress, Cooperative Additional General Exam Details: Vital Signs - Last Taken Temperature 97.2 F 03/06/19 06:30 Pulse Rate 50 L 03/06/19 07:00 Respiratory Rate 18 03/06/19 06:30 Blood Pressure 122/79 03/06/19 06:30 Pulse Ox 100 03/06/19 06:30 - Eye Eye Exam: No Scleral Icterus - ENT ENT Exam: Mucous Membranes Moist - Neck Neck Exam: JVP is not Raised - Respiratory Respiratory Exam: Clear to Auscultation - Bilaterally, Breathing Non Labored - Cardiovascular Cardiovascular Exam: No Murmur, No Clicks, No Gallops, No Rubs, Bradycardia, No JVD - GI/Abdominal GI/Abdominal Exam: Non Distended, Soft Additional GI/Abdominal Exam Details: Tender to palpation, I don't appreciate great bowel sounds today - Extremities Extremities Exam: No Clubbing Present, No Edema Present, No Cyanosis Present - Neurological Neurological Exam: Alert, Oriented x 3, No Facial Droop, Speech Intact / Clear, Moves All Extremities Equally Assessment and Plan - Patient Problems (1) Small bowel obstruction Current Visit: Yes Status: Acute Code(s): K56.609 - Unspecified intestinal obstruction, unspecified as to partial versus complete obstruction (2) Anxiety Current Visit: Yes Status: Chronic Code(s): F41.9 - Anxiety disorder, unspecified (3) Hypertension Current Visit: Yes Status: Chronic Code(s): I10 - Essential (primary) hypertension Qualifiers: Hypertension type: essential hypertension Qualified Code(s): I10 - Essential (primary) hypertension - Assessment / Plan Additional Assessment/Plan Details: Given worsening of symptoms, and findings on acute abdominal series, I spoke with surgery. Patient may likely go to the operating room. I will get a lactic acid as well. Labs in a.m. I spoke with the patient, he is aware that his x-ray still suggesting bowel obstruction despite conservative therapy with NG tube. Continue NG tube at low intermittent wall suction, antiemetics, and medications for pain. Electrolyte replacement as necessary.
[2019-03-06] MEDS ORDERED: Lactated Ringers 1,000 ML PRIMARY IV ONE ×3 (11:30→15:10)
--- NOTE | 2019-03-06 11:41 | PDOC(PROG) ---
Date of Service: 03/06/19 Time of Service: 11:25 Interval History: Patient was very miserable this morning when the NG tube was clamped for his x- ray. Increased nausea and abdominal pain. X-ray shows dilated loops of small bowel with multiple air-fluid levels. There is no air in the descending colon. This is consistent with a high-grade partial small bowel obstruction. Two separate radiologists have reviewed this film and feel it is consistent with at least a high-grade partial small bowel obstruction Patient reports he is not better and is not particularly worse. He still has diffuse abdominal pain. He is nauseated even with the NG tube in place. No vomiting. No further flatus or bowel movements. Objective : Data - Labs CBC and BMP: 03/06/19 04:13 03/06/19 04:13 - Imaging Imaging Details: See history of present illness. X-ray consistent with at least a partial high- grade small bowel obstruction. - Vital Signs Vital Signs and I&O: Vital Signs - Last Taken Temperature 98.9 F 03/06/19 11:28 Pulse Rate 64 03/06/19 11:28 Respiratory Rate 18 03/06/19 11:28 Blood Pressure 124/77 03/06/19 11:28 Pulse Ox 94 03/06/19 11:28 Intake and Output (24hr x 4 totals) 03/04/19 03/05/19 03/06/19 03/07/19 05:59 05:59 05:59 05:59 Intake Total 2585 / 2585 2994 / 2994 Output Total 800 / 800 1125 / 1125 50 / 50 Balance 1785 / 1785 1869 / 1869 -50 / -50 Objective : Exam - General General Appearance: Cooperative, Mild Distress - Respiratory Respiratory Exam: Clear to Auscultation - Bilaterally, Breathing Non Labored - Cardiovascular Cardiovascular Exam: RRR, No Murmur - GI/Abdominal GI/Abdominal Exam: Non Distended, Hypoactive Bowel Sounds Additional GI/Abdominal Exam Details: Diffusely tender in the epigastrium and bilateral lower quadrants. No signs of peritoneal irritation. Minimal bowel tones. Not particularly distended. - Rectal Rectal Exam: Deferred - Neurological Neurological Exam: Alert, Oriented x 3 - Psychiatric Psychiatric Exam: Normal Affect, Normal Mood Assessment and Plan - Patient Problems (1) Partial obstruction of small intestine Current Visit: Yes Status: Acute Priority: High Onset Date: 03/03/19 Comment: No improvement after approximately 48 hours of conservative care. Persisting abdominal tenderness worrisome. At this point I believe we need to proceed with exploratory laparotomy to make sure he has no compromised bowel. I don't think further x-rays would be of benefit. I have discussed this with the patient, his father, and a friend. Proceed with exploratory laparotomy with lysis of adhesions and possible small bowel resection. The possibility of an ostomy has been discussed.The procedure has been discussed with the patient in complete yet simple terms including benefits, risks, and alternatives. All ques tions have been answered. Informed consent has been obtained. Code(s): K56.600 - Partial intestinal obstruction, unspecified as to cause
[2019-03-06] MEDS ORDERED: Nasal Sanitizer POPSWAB ampule 3 AMP (Nozin) PREOP DOSE ENOS SCH (11:45)
[2019-03-06] MEDS ORDERED: ROCURONIUM 10 MG/1 ML - 5 ML VIAL IVP ONE ×3 (11:45→13:52)
[2019-03-06] MEDS ORDERED: Lactated Ringers 1,000 ML PRIMARY IV SCH ×2 (11:45→12:15)
[2019-03-06] MEDS ORDERED: Ertapenem Inj 1 GM in Sodium Chloride 0.9% 100 ML IV SCH (11:45)
[2019-03-06] MEDS ORDERED: LIDOCAINE MPF 2% - 5 ML (20 MG/1 ML) ONE (11:46)
[2019-03-06] MEDS ORDERED: PROPOFOL 10 MG/1 ML (200 MG/20 ML) VIAL IV ONE (11:46)
[2019-03-06] MEDS ORDERED: MIDAZOLAM HCL 2 MG/2 ML VIAL ONE (11:46)
[2019-03-06] MEDS ORDERED: fentaNYL Inj 250 MCG/5 ML VIAL ONE (11:46)
[2019-03-06] MEDS ORDERED: PROMETHAZINE 25 MG/1 ML VIAL IM PRN (12:03)
[2019-03-06] MEDS ORDERED: fentaNYL Inj 100 MCG/2 ML VIAL IVP PRN (12:03)
[2019-03-06] MEDS ORDERED: LIDOCAINE W/ SODIUM BICARB 0.5 ML SYR SUBD PRN ×2 (12:03→16:38)
[2019-03-06] MEDS ORDERED: BUPIVACAINE 0.25% W/ EPI - 10 ML VIAL ONE (12:09)
[2019-03-06] MEDS ORDERED: LIDOCAINE HCL 2 % 10 ML JELLY URO-JECT TOPICAL ONE ×2 (12:09→15:57)
[2019-03-06] MEDS ORDERED: BUPivacaine Liposome/PF (Exparel) Inj 20ml vial INFIL ONE (12:46)
[2019-03-06] MEDS ORDERED: Sodium Chloride 0.9% vial 40 ML ONE (12:46)
[2019-03-06] MEDS ORDERED: KETAMINE HCL 100 MG/2 ML SYRINGE IV ONE (12:47)
[2019-03-06] MEDS ORDERED: Sodium Chloride 0.9% 0 ML IV ONE (13:06)
[2019-03-06] MEDS ORDERED: ERTAPENEM 1 GM VIAL ONE (13:06)
[2019-03-06] MEDS ORDERED: ONDANSETRON 4 MG/2 ML VIAL ONE (13:35)
[2019-03-06] MEDS ORDERED: GLYCOPYRROLATE 0.2 MG/1 ML VIAL ONE (13:35)
[2019-03-06] MEDS ORDERED: SUGAMMADEX SODIUM 200 MG/2 ML VIAL IV ONE (14:41)
[2019-03-06] MEDS ORDERED: HYDROmorphone 2 MG/1 ML ONE ×2 (14:41→15:49)
[2019-03-06] MEDS ORDERED: KETOROLAC 30 MG/1 ML VIAL ONE ×2 (15:06)
[2019-03-06] MEDS ORDERED: LIDOCAINE W/ SODIUM BICARB 0.5 ML SYR ONE (15:38)
--- NOTE | 2019-03-06 15:47 | CRNA.PROGR ---
Anesthesia Recovery Phase I - Post Anesthesia Evaluation Patient's Condition on Arrival in Phase I: Stable Pain Level: 6
--- NOTE | 2019-03-06 15:47 | CRNA.PROGR ---
Anesthesia Time - Procedure/Recovery Time Start Date: 03/06/19 End Date: 03/06/19 Anesthesia : Time In: 12:20 Anesthesia : Time Out: 15:40 Anesthesia : Total Time: 200 - Total Anesthesia Time Total Anesthesia Time (minutes): 200 - Other Weight: 82.01 kg Height: 6 ft 1 in Body Mass Index (BMI): 23.8 Physical Status: P2 Anesthesia Type: General Anesthesia : ET
--- NOTE | 2019-03-06 15:59 | GEN.OPNOTE ---
Operative Note Surgery Date: 03/06/19 Preoperative Diagnosis: High-grade partial small bowel obstruction Postoperative Diagnosis: High-grade partial small bowel obstruction secondary to an adhesive band with multiple other adhesions. Compromised bowel with high- grade stricture. Procedure: #1 small bowel resection with primary anastomosis. #2 extensive lysis of adhesions. #3 repair multiple serosal tears in the small bowel. #4 partial omentectomy. Surgeon: Jeremy Jovel MD Anesthesia Provider: Trung Hopkins CRNA Anesthesia Type: General Estimated Blood Loss (mL): 250 Fluids: 3 L of crystalloid. 1 g of IV Invanz at the start of the procedure. 30 mg of IV and 30 mg of IM Toradol at the end of the procedure. The wound was injected with 20 mL of Exparel diluted to 60 mL's at the end of the procedure. Pathology: Resected small bowel and partial omentum. Indications: High-grade partial obstruction of the small bowel with failure after 48 hours of conservative treatment. Findings: Extensive intra-abdominal adhesions. One adhesive band across the distal small bowel creating a high-grade stricture and a short section of compromised bowel. Complications: None. Operative Summary: The patient was taken to the operating suite and placed on the operating table in a supine position. Following induction of adequate general anesthetic the abdomen was prepped and draped in a sterile fashion. A surgical timeout was done. The midline incision was opened. The dissection was carried through the subcutaneous tissue and fascia with electrocautery. The fascia was elevated. Adhesions were taken down from the anterior abdominal wall both sharply and with electrocautery. I spent 1hour and 45 minutes just taking down adhesions and running the bowel. The omentum had to be carefully peeled off the bowel. In doing so there were some rents in the omentum. The distal omentum was excised by serially clamping dividing and ligating it with 0 Vicryl until I felt I could leave adequate omentum behind. In taking down the multiple adhesions there were multiple serosal rents in the small bowel. These were closed with simple Lembert style stitches of 3-0 Vicryl in a transverse fashion. A tight and thick adhesive band was found going across the distal small bowel. This was lysed and excised both proximally and distally. There was a short section of compromised bowel. The stricture created by the band never really opened up. The bowel was run from proximal to distal and distal to proximal. There were no other areas of obstruction. The majority of the bowel appeared viable with the exception of a short section at the stricture. I chose proximal and distal transection sites. A linear stapler was fired proximally and distally to the stricture transecting the bowel. The mesentery was serially clamped and divided and ligated until the short section of bowel could be removed. This was roughly a 6 inch section of bowel. It was approximately 14 inches above the ileocecal valve. The mesenteric defect was closed with 2-0 Vicryl. The bowel was placed side to side. The bowel was anastomosis with an intraluminal linear stapler. The defect created by the stapler was closed transversely with another stapler. This created a [id number] yet functional end-to-end anastomosis. The anastomosis was inspected circumferentially. It was widely patent. A stitch was placed in the crotch of the anastomosis using 3-0 Vicryl for security. The intestine was all return to the abdominal cavity and covered with omentum. Extensive irrigation was undertaken using 5 L of saline. Final check for hemostasis was made. Initial counts were correct. There was no other significant intra-abdominal pathology. The cecum and ascending colon were full of stool. The colon was somewhat redundant. There was stool in the distal colon as well. The NG tube was in good position within the stomach. The midline fascia was closed with #1 Vicryl in a running fashion. 2 sutures were used. One from the cephalad and one from the caudad portion of the fascial defect. The wound was extensively irrigated. The wound was infiltrated circumferentially with Exparel. The skin was closed with surgical lencho followed by an appropriate dressing. The patient tolerated all aspects of the procedure well without complication. He was taken to the postanesthesia care unit in stable condition. All counts were correct. Patient Problems - Patient Problem List (1) Partial obstruction of small intestine Current Visit: Yes Status: Acute Onset Date: 03/03/19 Priority: High Code(s): K56.600 - Partial intestinal obstruction, unspecified as to cause Category: Medical Procedure Codes - Surgical Procedures Primary Surgical Procedure: 78322 : Enterectomy, Resection Sm Bowel Secondary Surgical Procedure: 74152 : Enterolysis
[2019-03-06] MEDS ORDERED: ONDANSETRON 4 MG/2 ML VIAL IVP PRN (16:38)
[2019-03-06] MEDS: Acetaminophen 1000mg Inj 1,000 MG/100 ML VIAL IV PRN (17:34)
[2019-03-06] MEDS: traZODone Tab 50 MG TAB PO SCH (21:08)
[2019-03-06] MEDS: KETOROLAC 30 MG/1 ML VIAL IVP SCH (21:09)
[2019-03-07] MEDS: HYDROmorphone 2 MG/1 ML IVP PRN ×5 (01:04→21:10)
[2019-03-07] MEDS: KETOROLAC 30 MG/1 ML VIAL IVP SCH ×4 (03:47→21:35)
[2019-03-07 04:24] LABS: Hematocrit [HCT] 41.1 % (42.0-52.0); Hemoglobin [HGB] 13.8 g/dL (14.0-18.0); MEAN CORPUSCULAR HEMOGLOBIN 30.6 PG (27-31); MEAN CORPUSCULAR HGB CONC 33.6 g/dL (33-37); MEAN CORPUSCULAR VOLUME 91.1 FL (80-90); MEAN PLATELET VOLUME 9.4 FL (7.4-12.2); RED BLOOD COUNT 4.51 10^6/uL (4.70-6.10)
[2019-03-07 04:34] LABS: BLOOD UREA NITROGEN 19 mg/dL (7-22); SERUM ALBUMIN 2.7 g/dL (3.5-4.8)
[2019-03-07 04:38] LABS: PLATELET MORPHOLOGY COMMENT NORMAL MORPHOLOGY (NORM); RBC MORPHOLOGY COMMENT NORMAL MORPHOLOGY (NORM); WBC MORPHOLOGY COMMENT NORMAL MORPHOLOGY (NORM)
[2019-03-07 04:39] LABS: RBC MORPHOLOGY COMMENT NORMAL MORPHOLOGY (NORM)
[2019-03-07 04:39] LABS: BAND NEUTROPHILS % 14 % (0-10); BASOPHILS % (MANUAL) 0 % (0-1); EOSINOPHILS % (MANUAL) 2 % (0-8); METAMYELOCYTES % 2 %; MONOCYTES % (MANUAL) 15 % (0-12); NEUTROPHILS % (MANUAL) 37 % (50-80)
[2019-03-07] MEDS: D5-1/2NS + 20mEq KCL 1,000 ML PRIMARY IV SCH ×3 (06:40→21:35)
[2019-03-07] MEDS ORDERED: Magnesium Sulfate 2gm (Premix) 2 GM/50 ML BAG IV ONE (08:24)
[2019-03-07] MEDS: VENLAFAXINE HCL XR 150 MG CAP PO SCH (09:24)
[2019-03-07] MEDS: PANTOPRAZOLE IV 40 MG VIAL IVP SCH (09:24)
[2019-03-07] MEDS: ATENOLOL 50 MG TABLET PO SCH ×2 (09:24→21:17)
[2019-03-07] MEDS: Acetaminophen 1000mg Inj 1,000 MG/100 ML VIAL IV PRN (10:23)
[2019-03-07] MEDS ORDERED: Sodium Chloride 0.9% 1,000 ML PRIMARY IV ONE ×2 (10:28→17:43)
--- NOTE | 2019-03-07 11:50 | CRNA.PROGR ---
Anesthesia Note - Progress Notes Anesthesia Progress Note: Sitting up in bed at the time of visit. He has been ambulatory ad cierra. Discussed his anesthetic course and he has no questions or concerns regarding his anesthetic. Laboratory Results 03/05/19 03/07/19 03/07/19 03:59 04:02 04:02 WBC 3.85 L RBC 4.51 L Hgb 13.8 L Hct 41.1 L MCV 91.1 H MCH 30.6 MCHC 33.6 RDW Std Deviation 42.3 RDW Coeff of Renita 12.9 Plt Count 252 MPV 9.4 Neutrophils % (Manual) 37 L Band Neutrophils % 14 H Lymphocytes % (Manual) 30 Monocytes % (Manual) 15 H Eosinophils % (Manual) 2 Basophils % (Manual) 0 Metamyelocytes % 2 Myelocytes % Not Reportable Promyelocytes % Not Reportable Blast Cells Not Reportable WBC Morphology Comment Normal morphology Plt Morphology Comment Normal morphology RBC Morph Comment Normal morphology Normal morphology Sodium 135 Potassium 4.7 Chloride 106 Carbon Dioxide 25 Anion Gap 4 L BUN 19 Creatinine 1.0 Estimated GFR > 60 BUN/Creatinine Ratio 19.00 Glucose 109 Calculated Osmolality 282.0 Calcium 8.0 L Magnesium 1.6 Total Bilirubin 1.1 AST 16 L ALT 16 L Alkaline Phosphatase 40 Total Protein 4.8 L Albumin 2.7 L Globulin 2.1 L Albumin/Globulin Ratio 1.20 L Vital Signs (24 hrs) 03/06/19 12:05 03/06/19 15:33 03/06/19 15:38 Temperature 98.2 F 98.4 F Pulse Rate 65 89 75 Pulse Rate [Pulse Oximeter] Respiratory Rate 14 14 12 Blood Pressure 127/81 133/89 141/80 Blood Pressure [Left Arm] Blood Pressure [Right Arm] Pulse Ox 92 90 100 03/06/19 15:43 03/06/19 15:48 03/06/19 15:53 Temperature Pulse Rate 87 87 85 Pulse Rate [Pulse Oximeter] Respiratory Rate 13 12 12 Blood Pressure 136/81 130/77 133/80 Blood Pressure [Left Arm] Blood Pressure [Right Arm] Pulse Ox 100 100 100 03/06/19 15:58 03/06/19 16:03 03/06/19 16:08 Temperature Pulse Rate 77 80 69 Pulse Rate [Pulse Oximeter] Respiratory Rate 12 12 12 Blood Pressure 131/70 131/70 116/72 Blood Pressure [Left Arm] Blood Pressure [Right Arm] Pulse Ox 100 100 100 03/06/19 16:14 03/06/19 16:19 03/06/19 16:23 Temperature 97.8 F Pulse Rate 79 80 78 Pulse Rate [Pulse Oximeter] Respiratory Rate 12 12 12 Blood Pressure 131/76 127/74 117/67 Blood Pressure [Left Arm] Blood Pressure [Right Arm] Pulse Ox 100 100 100 03/06/19 16:40 03/06/19 16:55 03/06/19 17:10 Temperature 97.3 F 99.2 F 98.9 F Pulse Rate Pulse Rate [Pulse Oximeter] 65 84 86 Respiratory Rate 12 18 16 Blood Pressure Blood Pressure [Left Arm] 116/67 112/76 117/67 Blood Pressure [Right Arm] Pulse Ox 99 97 97 03/06/19 17:25 03/06/19 17:55 03/06/19 18:30 Temperature 99 F 98.5 F 98.6 F Pulse Rate Pulse Rate [Pulse Oximeter] 87 83 64 Respiratory Rate 16 12 16 Blood Pressure Blood Pressure [Left Arm] 116/70 111/72 114/71 Blood Pressure [Right Arm] Pulse Ox 97 97 97 03/06/19 19:30 03/07/19 01:00 03/07/19 03:56 Temperature 97.4 F 98.5 F 99.6 F Pulse Rate Pulse Rate [Pulse Oximeter] 80 87 100 Respiratory Rate 18 14 18 Blood Pressure Blood Pressure [Left Arm] 103/60 Blood Pressure [Right Arm] 116/73 117/74 Pulse Ox 96 99 99 03/07/19 04:09 03/07/19 06:42 Temperature 97.4 F Pulse Rate Pulse Rate [Pulse Oximeter] 80 Respiratory Rate 24 Blood Pressure Blood Pressure [Left Arm] Blood Pressure [Right Arm] 117/76 Pulse Ox 95 97
[2019-03-07] MEDS ORDERED: Ertapenem Inj 1 GM in Sodium Chloride 0.9% 100 ML IV SCH (12:00)
--- NOTE | 2019-03-07 12:06 | PDOC(PROG) ---
Date of Service: 03/07/19 Time of Service: 12:03 Interval History: No chest pain, shortness breath, nausea or vomiting. Feels significantly better than he did yesterday. Has incisional pain but controlled. States he was up walking once today already. Objective : Data - Labs CBC and BMP: 03/07/19 04:02 03/07/19 04:02 Additional Lab Results: 03/06/19 03/07/19 10:42 04:02 Lactic Acid 0.7 Calcium 8.0 L Magnesium 1.6 Total Bilirubin 1.1 AST 16 L ALT 16 L Alkaline Phosphatase 40 Total Protein 4.8 L Albumin 2.7 L Globulin 2.1 L Albumin/Globulin Ratio 1.20 L Objective : Exam - General General Appearance: No Acute Distress, Cooperative Additional General Exam Details: Vital Signs - Last Taken Temperature 97.4 F 03/07/19 06:42 Pulse Rate 80 03/07/19 06:42 Respiratory Rate 24 03/07/19 06:42 Blood Pressure 117/76 03/07/19 06:42 Pulse Ox 97 03/07/19 06:42 - Eye Eye Exam: No Scleral Icterus - ENT ENT Exam: Mucous Membranes Moist - Neck Neck Exam: JVP is not Raised - Respiratory Respiratory Exam: Clear to Auscultation - Bilaterally, Breathing Non Labored - Cardiovascular Cardiovascular Exam: RRR, No Murmur, No Clicks, No Gallops, No Rubs, No JVD - GI/Abdominal GI/Abdominal Exam: Non Distended, Soft, Diminished Bowel Sounds Additional GI/Abdominal Exam Details: Incision is dressed. Dressing is clean, dry, intact - Extremities Extremities Exam: No Clubbing Present, No Edema Present, No Cyanosis Present - Neurological Neurological Exam: Alert, Oriented x 3, No Facial Droop, Speech Intact / Clear, Moves All Extremities Equally Assessment and Plan - Patient Problems (1) Small bowel obstruction Current Visit: Yes Status: Acute Code(s): K56.609 - Unspecified intestinal obstruction, unspecified as to partial versus complete obstruction (2) Hypertension Current Visit: Yes Status: Chronic Code(s): I10 - Essential (primary) hypertension Qualifiers: Hypertension type: essential hypertension Qualified Code(s): I10 - Essential (primary) hypertension (3) Anxiety Current Visit: Yes Status: Chronic Code(s): F41.9 - Anxiety disorder, unspecified - Assessment / Plan Additional Assessment/Plan Details: Patient is doing much better after surgery. I think we can discontinue the catheter later today if he continues to ambulate well. Diet advancement as per surgery. Labs in a.m. Replace magnesium. Antiemetics and pain medications. I encouraged incentive spirometry, we discussed that this would be a good thing to do to prevent pneumonia. I also encouraged patient to walk frequently through the halls today.
--- NOTE | 2019-03-07 13:55 | PDOC(PROG) ---
Subjective Post Op Day: 1 Pain Management: IV Tylenol, IV Toradol, and IV Dilaudid area and Walker Catheter: Yes Flatus: No Diet: NPO Ambulating: Yes Date of Service: 03/07/19 Time of Service: 13:15 Interval History: Overall reports he feels better. His pain is now abdominal wall rather than deep inside. He is feeling a slight amount of rumbling. No flatus. No bowel movement. Decreased nausea. Has ambulated. Pain medicine is not lasting him the full 3 hours. We will make some modifications. NG tube is still putting out some thick greenish fluid. Discussed with the patient. We'll leave that one more day. We will also leave the Walker 1 more day as his urine output is adequate. His urine is dark. He received a bolus of IV fluids. Surgical findings and surgical procedure were discussed in detail. Objective : Data - Labs CBC and BMP: 03/07/19 04:02 03/07/19 04:02 - Vital Signs Vital Signs and I&O: Vital Signs - Last Taken Temperature 97.3 F 03/07/19 12:22 Pulse Rate 69 03/07/19 12:22 Respiratory Rate 16 03/07/19 12:22 Blood Pressure 102/61 03/07/19 12:22 Pulse Ox 96 03/07/19 12:22 Intake and Output (24hr x 4 totals) 03/05/19 03/06/19 03/07/19 03/08/19 05:59 05:59 05:59 05:59 Intake Total 2585 / 2585 2994 / 2994 5440 / 5440 Output Total 800 / 800 1125 / 1125 1330 / 1330 200 / 200 Balance 1785 / 1785 1869 / 1869 4110 / 4110 -200 / -200 Objective : Exam - General General Appearance: No Acute Distress, Cooperative - Respiratory Respiratory Exam: Clear to Auscultation - Bilaterally, Breathing Non Labored - Cardiovascular Cardiovascular Exam: RRR, No Murmur - GI/Abdominal GI/Abdominal Exam: Non Distended, Soft, Guarding, Hypoactive Bowel Sounds Additional GI/Abdominal Exam Details: The dressing is clean, dry, and intact. Incisional tenderness and the abdominal wall. Hypoactive bowel tones. No signs of peritoneal irritation. - Neurological Neurological Exam: Alert, Oriented x 3 - Psychiatric Psychiatric Exam: Normal Affect, Normal Mood Assessment and Plan - Patient Problems (1) Partial obstruction of small intestine Current Visit: Yes Status: Acute Priority: High Onset Date: 03/03/19 Comment: Status post exploratory laparotomy with extensive lysis of adhesions and small bowel resection with primary anastomosis. Also underwent a partial omentectomy. Stable postoperative day 1. We will leave the NG tube and Walker until tomorrow. Check a.m. labs. Starting a few ice chips. Some modifications to his pain medications have been written. Continue postoperative care. Discussed in detail with the patient and nursing staff. Code(s): K56.600 - Partial intestinal obstruction, unspecified as to cause
[2019-03-07] MEDS: Acetaminophen 1000mg Inj 1,000 MG/100 ML VIAL IV SCH (18:32)
[2019-03-07] MEDS: traZODone Tab 50 MG TAB PO SCH (20:21)
[2019-03-08] MEDS: Acetaminophen 1000mg Inj 1,000 MG/100 ML VIAL IV SCH ×3 (03:07→19:23)
[2019-03-08] MEDS: D5-1/2NS + 20mEq KCL 1,000 ML PRIMARY IV SCH ×3 (04:15→19:23)
[2019-03-08] MEDS: KETOROLAC 30 MG/1 ML VIAL IVP SCH ×4 (04:15→22:10)
[2019-03-08 04:55] LABS: BASOPHILS # (AUTO) 0.01 10*3/UL; BASOPHILS % (AUTO) 0.1 % (0-1); EOSINOPHILS # (AUTO) 0.18 10*3/UL; EOSINOPHILS % (AUTO) 2.6 % (0-8); Hematocrit [HCT] 35.1 % (42.0-52.0); Hemoglobin [HGB] 11.7 g/dL (14.0-18.0); LYMPHOCYTES # (AUTO) 0.47 10*3/uL; MEAN CORPUSCULAR HEMOGLOBIN 30.6 PG (27-31); MEAN CORPUSCULAR HGB CONC 33.3 g/dL (33-37); MEAN CORPUSCULAR VOLUME 91.9 FL (80-90); MEAN PLATELET VOLUME 9.6 FL (7.4-12.2); MONOCYTES # (AUTO) 0.93 10*3/UL (0.3-0.8); MONOCYTES % (AUTO) 13.6 % (5-15); NEUTROPHILS # (AUTO) 5.22 10*3/UL; NEUTROPHILS % (AUTO) 76.5 % (50-80); RED BLOOD COUNT 3.82 10^6/uL (4.70-6.10)
[2019-03-08 05:02] LABS: BLOOD UREA NITROGEN 18 mg/dL (7-22); BUN/CREATININE RATIO 25.71 (6-20)
[2019-03-08 05:06] LABS: PLATELET MORPHOLOGY COMMENT NORMAL MORPHOLOGY (NORM); RBC MORPHOLOGY COMMENT NORMAL MORPHOLOGY (NORM); WBC MORPHOLOGY COMMENT NORMAL MORPHOLOGY (NORM)
[2019-03-08] MEDS: PANTOPRAZOLE IV 40 MG VIAL IVP SCH (08:21)
[2019-03-08] MEDS: HYDROmorphone 2 MG/1 ML IVP PRN (08:21)
[2019-03-08] MEDS: VENLAFAXINE HCL XR 150 MG CAP PO SCH (08:22)
[2019-03-08] MEDS: ATENOLOL 50 MG TABLET PO SCH ×2 (08:22→20:05)
--- NOTE | 2019-03-08 13:01 | PDOC(PROG) ---
Date of Service: 03/08/19 Time of Service: 12:57 Interval History: no chest pain, no nausea or vomiting no shortness of breath. walking well no gas yet. Objective : Data - Labs CBC and BMP: 03/08/19 04:18 03/08/19 04:18 Additional Lab Results: 03/08/19 04:18 Calcium 7.9 L Magnesium 2.1 Objective : Exam - General General Appearance: No Acute Distress, Cooperative Additional General Exam Details: Vital Signs - Last Taken Temperature 98.8 F 03/08/19 12:14 Pulse Rate 77 03/08/19 12:14 Respiratory Rate 20 03/08/19 12:14 Blood Pressure 136/59 03/08/19 12:14 Pulse Ox 98 03/08/19 12:14 - Head Head Exam: Normal Inspection, Normocephalic, Atraumatic - Eye Eye Exam: No Scleral Icterus - ENT ENT Exam: Mucous Membranes Moist - Neck Neck Exam: JVP is not Raised - Respiratory Respiratory Exam: Clear to Auscultation - Bilaterally, Breathing Non Labored - Cardiovascular Cardiovascular Exam: RRR, No Murmur, No Clicks, No Gallops, No Rubs, No JVD - GI/Abdominal GI/Abdominal Exam: Non Tender, Non Distended, Soft Additional GI/Abdominal Exam Details: incision is dressed. clean, dry, intact. - Extremities Extremities Exam: No Clubbing Present, No Edema Present, No Cyanosis Present - Neurological Neurological Exam: Alert, Oriented x 3, Normal Gait, No Facial Droop, Speech Intact / Clear, Moves All Extremities Equally Assessment and Plan - Patient Problems (1) Small bowel obstruction Current Visit: Yes Status: Acute Code(s): K56.609 - Unspecified intestinal obstruction, unspecified as to partial versus complete obstruction (2) Hypertension Current Visit: Yes Status: Chronic Code(s): I10 - Essential (primary) hypertension Qualifiers: Hypertension type: essential hypertension Qualified Code(s): I10 - Essential (primary) hypertension (3) Anxiety Current Visit: Yes Status: Chronic Code(s): F41.9 - Anxiety disorder, unspecified - Assessment / Plan Additional Assessment/Plan Details: POD #2 post laparotomy and partial small bowel resection labs in AM I will keep NG and quintanilla--defer those decisions to surgery. encouraging that urine output has picked up replace potassium. discussed with family, patient at bedside.
--- NOTE | 2019-03-08 13:39 | PDOC(PROG) ---
Subjective Post Op Day: 2 Pain Management: IV Toradol, Tylenol, and Dilaudid. Walker Catheter: No Flatus: Yes Diet: ice chips Ambulating: Yes Date of Service: 03/08/19 Time of Service: 13:20 Interval History: Overall feeling better. Still having some pain but the pain control is better. No nausea. Reports he passed a small amount of gas. No bowel movement. Abdominal pain is predominantly incisional. He is starting to feel some rumbling in his abdomen. He is ambulating. His urine output has improved. NG tube output has cleared. Objective : Data - Labs CBC and BMP: 03/08/19 04:18 03/08/19 04:18 - Vital Signs Vital Signs and I&O: Vital Signs - Last Taken Temperature 98.8 F 03/08/19 12:14 Pulse Rate 77 03/08/19 12:14 Respiratory Rate 20 03/08/19 12:14 Blood Pressure 136/59 03/08/19 12:14 Pulse Ox 98 03/08/19 12:14 Intake and Output (24hr x 4 totals) 03/06/19 03/07/19 03/08/19 03/09/19 05:59 05:59 05:59 05:59 Intake Total 2994 / 2994 5440 / 5440 4516 / 4516 Output Total 1125 / 1125 1330 / 1330 1100 / 1100 725 / 725 Balance 1869 / 1869 4110 / 4110 3416 / 3416 -725 / -725 Objective : Exam - General General Appearance: Cooperative, Mild Distress - Respiratory Respiratory Exam: Clear to Auscultation - Bilaterally, Breathing Non Labored - Cardiovascular Cardiovascular Exam: RRR, No Murmur - GI/Abdominal GI/Abdominal Exam: Firm, Hypoactive Bowel Sounds Additional GI/Abdominal Exam Details: The dressing is clean, dry, and intact. The abdomen is soft laterally. Incisional tenderness. Not particularly distended. Bowel tones remained hypoactive. - Neurological Neurological Exam: Alert, Oriented x 3 - Psychiatric Psychiatric Exam: Normal Affect, Normal Mood Assessment and Plan - Patient Problems (1) Partial obstruction of small intestine Current Visit: Yes Status: Acute Priority: High Onset Date: 03/03/19 Comment: Doing well postoperative day #2. Await return of GI function. We will remove the Walker and the NG tube. Start Lovenox and Reglan. Monitor labs and continue postoperative care. Discussed with the patient and his family. All looks good at this time. Code(s): K56.600 - Partial intestinal obstruction, unspecified as to cause
[2019-03-08 13:44] LABS: BASOPHILS # (AUTO) 0.01 10*3/UL; BASOPHILS % (AUTO) 0.1 % (0-1); EOSINOPHILS % (AUTO) 2.7 % (0-8); Hematocrit [HCT] 35.1 % (42.0-52.0); Hemoglobin [HGB] 11.8 g/dL (14.0-18.0); LYMPHOCYTES # (AUTO) 0.75 10*3/uL; MEAN CORPUSCULAR HEMOGLOBIN 30.6 PG (27-31); MEAN CORPUSCULAR HGB CONC 33.6 g/dL (33-37); MEAN CORPUSCULAR VOLUME 91.2 FL (80-90); MONOCYTES # (AUTO) 0.84 10*3/UL (0.3-0.8); MONOCYTES % (AUTO) 11.2 % (5-15); NEUTROPHILS # (AUTO) 5.71 10*3/UL; NEUTROPHILS % (AUTO) 75.7 % (50-80); RED BLOOD COUNT 3.85 10^6/uL (4.70-6.10)
[2019-03-08 13:45] LABS: PLATELET MORPHOLOGY COMMENT NORMAL MORPHOLOGY (NORM); RBC MORPHOLOGY COMMENT NORMAL MORPHOLOGY (NORM); WBC MORPHOLOGY COMMENT NORMAL MORPHOLOGY (NORM)
[2019-03-08] MEDS: ENOXAPARIN SODIUM 40 MG/0.4 ML SYRINGE SUBCUT SCH (14:30)
[2019-03-08] MEDS: Metoclopramide Inj 10 MG/2 ML VIAL IVP SCH ×2 (14:30→19:23)
[2019-03-08] MEDS: traZODone Tab 50 MG TAB PO SCH (20:05)
[2019-03-09] MEDS: Metoclopramide Inj 10 MG/2 ML VIAL IVP SCH ×4 (02:15→20:23)
[2019-03-09] MEDS: Acetaminophen 1000mg Inj 1,000 MG/100 ML VIAL IV SCH ×3 (02:16→19:09)
[2019-03-09] MEDS: D5-1/2NS + 20mEq KCL 1,000 ML PRIMARY IV SCH ×3 (02:16→17:44)
[2019-03-09] MEDS: KETOROLAC 30 MG/1 ML VIAL IVP SCH ×4 (03:59→21:42)
[2019-03-09] MEDS ORDERED: LABETALOL 20 MG/4 ML (5 MG/1 ML) SYRINGE IVP PRN (04:11)
[2019-03-09 04:33] LABS: BLOOD UREA NITROGEN 10 mg/dL (7-22); BUN/CREATININE RATIO 14.28 (6-20)
[2019-03-09] MEDS: PANTOPRAZOLE IV 40 MG VIAL IVP SCH (08:10)
[2019-03-09] MEDS: VENLAFAXINE HCL XR 150 MG CAP PO SCH (08:18)
[2019-03-09] MEDS: ATENOLOL 50 MG TABLET PO SCH ×2 (08:19→20:22)
[2019-03-09] MEDS: ENOXAPARIN SODIUM 40 MG/0.4 ML SYRINGE SUBCUT SCH (08:20)
[2019-03-09] MEDS: HYDROmorphone 2 MG/1 ML IVP PRN ×2 (09:03→20:36)
--- NOTE | 2019-03-09 09:39 | PDOC(PROG) ---
Date of Service: 03/09/19 Time of Service: 09:40 Interval History: Subjective He said he feels better. Pain is down to 3. He is passing gas. He did walk around. No shortness of breath or dizziness. Objective : Data - Labs CBC and BMP: 03/08/19 13:42 03/09/19 04:03 Objective : Exam - General General Appearance: No Acute Distress, Cooperative - Head Head Exam: Normal Inspection - Eye Eye Exam: Normal Appearance - ENT ENT Exam: Normal Exam - Neck Neck Exam: Normal Inspection - Respiratory Respiratory Exam: Clear to Auscultation - Bilaterally - Cardiovascular Cardiovascular Exam: RRR - GI/Abdominal GI/Abdominal Exam: Non Distended, Soft Additional GI/Abdominal Exam Details: Some tenderness on the size noted. Dressing is dry. Bowel sounds are sluggish. - Rectal Rectal Exam: Deferred - External Exam: Deferred - Extremities Extremities Exam: Normal Inspection - Back Back Exam: Normal Inspection - Neurological Neurological Exam: Alert, Oriented x 3, CN II-XII Intact, No Facial Droop, Speech Intact / Clear, Moves All Extremities Equally - Psychiatric Psychiatric Exam: Normal Affect Assessment and Plan - Patient Problems (1) Small bowel obstruction Current Visit: Yes Status: Acute Comment: Status post surgery with lysis of adhesions. I think he is improving. Consider advancing his diet to clear liquid but will leave it to Dr. Jovel, I did talk to him and he will see him and decide about the diet. Code(s): K56.609 - Unspecified intestinal obstruction, unspecified as to partial versus complete obstruction (2) Hypertension Current Visit: Yes Status: Chronic Comment: Same med Code(s): I10 - Essential (primary) hypertension Qualifiers: Hypertension type: essential hypertension Qualified Code(s): I10 - Essential (primary) hypertension (3) Anxiety Current Visit: Yes Status: Chronic Comment: Same medications Code(s): F41.9 - Anxiety disorder, unspecified
[2019-03-09 11:31] LABS: BASOPHILS # (AUTO) 0.02 10*3/UL; BASOPHILS % (AUTO) 0.2 % (0-1); EOSINOPHILS % (AUTO) 3.3 % (0-8); Hematocrit [HCT] 35.1 % (42.0-52.0); Hemoglobin [HGB] 11.8 g/dL (14.0-18.0); LYMPHOCYTES # (AUTO) 0.75 10*3/uL; MEAN CORPUSCULAR HEMOGLOBIN 30.3 PG (27-31); MEAN CORPUSCULAR HGB CONC 33.6 g/dL (33-37); MEAN CORPUSCULAR VOLUME 90.2 FL (80-90); MEAN PLATELET VOLUME 9.8 FL (7.4-12.2); MONOCYTES # (AUTO) 0.98 10*3/UL (0.3-0.8); MONOCYTES % (AUTO) 10.6 % (5-15); NEUTROPHILS # (AUTO) 7.13 10*3/UL; NEUTROPHILS % (AUTO) 77.5 % (50-80); RED BLOOD COUNT 3.89 10^6/uL (4.70-6.10)
[2019-03-09 11:38] LABS: PLATELET MORPHOLOGY COMMENT NORMAL MORPHOLOGY (NORM); RBC MORPHOLOGY COMMENT NORMAL MORPHOLOGY (NORM); WBC MORPHOLOGY COMMENT NORMAL MORPHOLOGY (NORM)
[2019-03-09] MEDS ORDERED: BISACODYL 10 MG SUPPOSITORY RECTAL ONE (11:42)
--- NOTE | 2019-03-09 11:51 | PDOC(PROG) ---
Subjective Post Op Day: 3 Pain Management: IV Toradol, Tylenol, and Dilaudid Walker Catheter: No Flatus: Yes Diet: ice chips Ambulating: Yes Date of Service: 03/09/19 Time of Service: 11:45 Interval History: Overall feeling better. Pain control is better. Ambulating. No nausea with the NG tube out. Some flatus. No bowel movement. Is feeling some rumbling in his abdomen. Voiding freely. Still having a little bit of cramping. Objective : Data - Labs CBC and BMP: 03/09/19 Unknown 03/09/19 04:03 - Vital Signs Vital Signs and I&O: Vital Signs - Last Taken Temperature 97.8 F 03/09/19 11:27 Pulse Rate 94 03/09/19 11:27 Respiratory Rate 18 03/09/19 11:27 Blood Pressure 143/99 03/09/19 11:27 Pulse Ox 93 03/09/19 11:27 Intake and Output (24hr x 4 totals) 03/07/19 03/08/19 03/09/19 03/10/19 05:59 05:59 05:59 05:59 Intake Total 5440 / 5440 4516 / 4516 3720 / 3720 60 / 60 Output Total 1330 / 1330 1100 / 1100 1900 / 1900 600 / 600 Balance 4110 / 4110 3416 / 3416 1820 / 1820 -540 / -540 Objective : Exam - General General Appearance: No Acute Distress, Cooperative - Respiratory Respiratory Exam: Clear to Auscultation - Bilaterally, Breathing Non Labored - Cardiovascular Cardiovascular Exam: RRR, No Murmur - GI/Abdominal GI/Abdominal Exam: Non Distended, Soft, Diminished Bowel Sounds Additional GI/Abdominal Exam Details: Dressing was changed. The incision looks great. No signs of infection. Bowel tones remained hypoactive with some tinkles. Certainly not normal. No significant distention. No signs of peritoneal irritation. - Neurological Neurological Exam: Alert, Oriented x 3 - Psychiatric Psychiatric Exam: Normal Affect, Normal Mood Assessment and Plan - Patient Problems (1) Partial obstruction of small intestine Current Visit: Yes Status: Acute Priority: High Onset Date: 03/03/19 Comment: Doing well postoperative day #3. Bowel function has not yet returned. Continue postoperative care. Patient may shower. We'll check a.m. labs and an x-ray tomorrow. We'll cut back on his IV fluids. We'll start small amounts of clear liquids slowly. Discussed all with the patient. Code(s): K56.600 - Partial intestinal obstruction, unspecified as to cause
[2019-03-09] MEDS: traZODone Tab 50 MG TAB PO SCH (21:27)
[2019-03-10] MEDS: Metoclopramide Inj 10 MG/2 ML VIAL IVP SCH ×4 (01:28→19:45)
[2019-03-10] MEDS: D5-1/2NS + 20mEq KCL 1,000 ML PRIMARY IV SCH ×2 (03:31→13:26)
[2019-03-10] MEDS: Acetaminophen 1000mg Inj 1,000 MG/100 ML VIAL IV SCH ×3 (03:32→18:48)
[2019-03-10] MEDS: KETOROLAC 30 MG/1 ML VIAL IVP SCH ×4 (03:32→22:06)
[2019-03-10 04:47] LABS: BASOPHILS # (AUTO) 0.02 10*3/UL; BASOPHILS % (AUTO) 0.2 % (0-1); EOSINOPHILS % (AUTO) 3.1 % (0-8); Hemoglobin [HGB] 12.5 g/dL (14.0-18.0); LYMPHOCYTES # (AUTO) 0.83 10*3/uL; MEAN CORPUSCULAR HEMOGLOBIN 30.6 PG (27-31); MEAN CORPUSCULAR HGB CONC 34.7 g/dL (33-37); MEAN PLATELET VOLUME 9.2 FL (7.4-12.2); MONOCYTES # (AUTO) 0.81 10*3/UL (0.3-0.8); MONOCYTES % (AUTO) 8.4 % (5-15); NEUTROPHILS # (AUTO) 7.65 10*3/UL; NEUTROPHILS % (AUTO) 79.3 % (50-80); RED BLOOD COUNT 4.09 10^6/uL (4.70-6.10)
[2019-03-10 04:56] LABS: BLOOD UREA NITROGEN 7 mg/dL (7-22)
[2019-03-10 04:57] LABS: PLATELET MORPHOLOGY COMMENT NORMAL MORPHOLOGY (NORM); RBC MORPHOLOGY COMMENT NORMAL MORPHOLOGY (NORM); WBC MORPHOLOGY COMMENT NORMAL MORPHOLOGY (NORM)
[2019-03-10] MEDS: HYDROmorphone 2 MG/1 ML IVP PRN ×2 (05:16→14:52)
--- NOTE | 2019-03-10 07:53 | DI ---
XR ABDOMEN KUB UPR[facility],03/10/2019 7:00 AM: Clinical History: Postoperative ileus. Previous Exam: None at this facility. Findings: 4 views of the abdomen are obtained, and demonstrate multiple air-fluid levels. Overlying skin lencho are seen. There is no pathologic calcifications. There is air seen within the colon. Impression: Multiple air-fluid levels with air in the colon most consistent with a postoperative ileus.
[2019-03-10] MEDS: VENLAFAXINE HCL XR 150 MG CAP PO SCH (09:08)
[2019-03-10] MEDS: PANTOPRAZOLE IV 40 MG VIAL IVP SCH (09:08)
[2019-03-10] MEDS: ATENOLOL 50 MG TABLET PO SCH ×2 (09:08→21:04)
[2019-03-10] MEDS: ENOXAPARIN SODIUM 40 MG/0.4 ML SYRINGE SUBCUT SCH (09:18)
--- NOTE | 2019-03-10 09:37 | PDOC(PROG) ---
Date of Service: 03/10/19 Time of Service: 09:40 Interval History: Subjective He said his pain intermittent. He had an attack of pain early this morning and he vomited. Feels better now. No other symptoms. Still passing gas but no bowel movement yet. Objective : Data - Labs CBC and BMP: 03/10/19 04:07 03/10/19 04:07 Objective : Exam - General General Appearance: No Acute Distress, Cooperative, Thin - Head Head Exam: Normal Inspection - Eye Eye Exam: Normal Appearance - ENT ENT Exam: Normal Exam - Neck Neck Exam: Normal Inspection - Respiratory Respiratory Exam: Clear to Auscultation - Bilaterally - Cardiovascular Cardiovascular Exam: RRR - GI/Abdominal GI/Abdominal Exam: Soft, No Organomegaly Additional GI/Abdominal Exam Details: Bowel sounds sluggish - Rectal Rectal Exam: Deferred - External Exam: Deferred - Extremities Extremities Exam: Normal Inspection - Back Back Exam: Normal Inspection - Neurological Neurological Exam: Alert, Oriented x 3, CN II-XII Intact, No Facial Droop, Speech Intact / Clear - Psychiatric Psychiatric Exam: Normal Affect Assessment and Plan - Patient Problems (1) Small bowel obstruction Current Visit: Yes Status: Acute Comment: Status post surgery day 4. There is a postoperative ileus. He is on IV fluid and pain medication. Further management is per Dr. Jovel. Code(s): K56.609 - Unspecified intestinal obstruction, unspecified as to partial versus complete obstruction (2) Hypertension Current Visit: Yes Status: Chronic Comment: Same med. Sometimes would have higher numbers but may be related to the pain I think will watch it. Code(s): I10 - Essential (primary) hypertension Qualifiers: Hypertension type: essential hypertension Qualified Code(s): I10 - Essential (primary) hypertension (3) Anxiety Current Visit: Yes Status: Chronic Comment: Same med Code(s): F41.9 - Anxiety disorder, unspecified
--- NOTE | 2019-03-10 12:03 | PDOC(PROG) ---
Subjective Post Op Day: 4 Pain Management: IV Tylenol, Toradol, and Dilaudid. Walker Catheter: No Flatus: Yes Diet: Clear Liquids (Small amounts.) Ambulating: Yes Date of Service: 03/10/19 Time of Service: 12:00 Interval History: The patient had a little juice yesterday. Early this morning had increased abdominal pain and a sour stomach. Then he vomiting about 300 mL of brownish liquid. Feels better now. Only taking a few ice chips. Patient is ambulating frequently. He reports he is passing gas and more of it every day. No bowel movement. Comfortable at the present time. Increase urine output. Consistent with mobilizing the fluid. X-ray shows dilated bowel with air-fluid levels consistent with an ileus. Objective : Data - Labs CBC and BMP: 03/10/19 04:07 03/10/19 04:07 - Vital Signs Vital Signs and I&O: Vital Signs - Last Taken Temperature 98.3 F 03/10/19 09:00 Pulse Rate 66 03/10/19 09:00 Respiratory Rate 20 03/10/19 09:00 Blood Pressure 149/99 03/10/19 09:00 Pulse Ox 95 03/10/19 09:00 Intake and Output (24hr x 4 totals) 03/08/19 03/09/19 03/10/19 03/11/19 05:59 05:59 05:59 05:59 Intake Total 4516 / 4516 3720 / 3720 3194 / 3194 Output Total 1100 / 1100 1900 / 1900 2775 / 2775 Balance 3416 / 3416 1820 / 1820 419 / 419 Objective : Exam - General General Appearance: No Acute Distress, Cooperative - Respiratory Respiratory Exam: Clear to Auscultation - Bilaterally, Breathing Non Labored - Cardiovascular Cardiovascular Exam: RRR, No Murmur - GI/Abdominal GI/Abdominal Exam: Non Distended, Soft, Hypoactive Bowel Sounds Additional GI/Abdominal Exam Details: The dressing is clean, dry, and intact. The abdomen is soft. Bowel tones are improved but remained hypoactive. - Neurological Neurological Exam: Alert, Oriented x 3 - Psychiatric Psychiatric Exam: Normal Affect, Normal Mood Assessment and Plan - Patient Problems (1) Partial obstruction of small intestine Current Visit: Yes Status: Acute Priority: High Onset Date: 03/03/19 Comment: Overall doing well. Starting to mobilize the fluids which is a good sign. Await return of bowel function. I told the patient small amounts of clears and a few ice chips only at this time. We discussed all the above in detail. He understands and we'll continue to monitor for return of GI function. Code(s): K56.600 - Partial intestinal obstruction, unspecified as to cause
[2019-03-10] MEDS: Aa 3%/Electrolyte-Tpn/Gly 1,000 ML PRIMARY IV SCH ×2 (15:47→23:52)
[2019-03-10] MEDS: Fat Emulsions Inj 20% 250 ML IV SCH (21:04)
[2019-03-10] MEDS: traZODone Tab 50 MG TAB PO SCH (21:04)
[2019-03-11] MEDS: Metoclopramide Inj 10 MG/2 ML VIAL IVP SCH ×4 (02:23→20:33)
[2019-03-11] MEDS: HYDROmorphone 2 MG/1 ML IVP PRN ×4 (03:35→20:59)
[2019-03-11] MEDS: KETOROLAC 30 MG/1 ML VIAL IVP SCH ×4 (03:36→22:25)
[2019-03-11] MEDS: Acetaminophen 1000mg Inj 1,000 MG/100 ML VIAL IV SCH ×3 (03:36→18:54)
[2019-03-11 05:47] LABS: BLOOD UREA NITROGEN 9 mg/dL (7-22); SERUM ALBUMIN 2.5 g/dL (3.5-4.8)
[2019-03-11] MEDS: Aa 3%/Electrolyte-Tpn/Gly 1,000 ML PRIMARY IV SCH ×3 (07:36→22:26)
[2019-03-11] MEDS: PANTOPRAZOLE IV 40 MG VIAL IVP SCH (09:24)
[2019-03-11] MEDS: ENOXAPARIN SODIUM 40 MG/0.4 ML SYRINGE SUBCUT SCH (09:24)
[2019-03-11] MEDS: ATENOLOL 50 MG TABLET PO SCH (09:24)
[2019-03-11] MEDS: VENLAFAXINE HCL XR 150 MG CAP PO SCH (09:24)
--- NOTE | 2019-03-11 11:32 | PDOC(PROG) ---
Date of Service: 03/11/19 Time of Service: 11:30 Interval History: Subjective Did not have a bowel movement yet. He still passing gas. He did not have an attack like the one had yesterday. He is being taking only ice chips. he tried apple juice today for the first time since the day before. So far sitting okay in his stomach. He said his blood pressure was difficult to control and only bystolic worked for him. He also take amlodipine. Objective : Data - Labs CBC and BMP: 03/10/19 04:07 03/11/19 05:20 Objective : Exam - General General Appearance: No Acute Distress, Cooperative - Head Head Exam: Normal Inspection - Eye Eye Exam: Normal Appearance - ENT ENT Exam: Normal Exam - Neck Neck Exam: Normal Inspection - Respiratory Respiratory Exam: Clear to Auscultation - Bilaterally - Cardiovascular Cardiovascular Exam: RRR - GI/Abdominal GI/Abdominal Exam: Non Tender, Non Distended, Soft, No Organomegaly Additional GI/Abdominal Exam Details: Bowel sounds still sluggish - Rectal Rectal Exam: Deferred - External Exam: Deferred - Extremities Extremities Exam: Normal Inspection Assessment and Plan - Patient Problems (1) Small bowel obstruction Current Visit: Yes Status: Acute Comment: Status post surgery day 5, still have postoperative ileus. He tried apple juice for the first time today we will see what happens. He is on TPN now. Code(s): K56.609 - Unspecified intestinal obstruction, unspecified as to partial versus complete obstruction (2) Hypertension Current Visit: Yes Status: Chronic Comment: Blood pressure is uncontrolled, will restart his amlodipine I did ask him if he can bring his bystolic to replace the atenolol that we put him on. Code(s): I10 - Essential (primary) hypertension Qualifiers: Hypertension type: essential hypertension Qualified Code(s): I10 - Essential (primary) hypertension (3) Anxiety Current Visit: Yes Status: Chronic Comment: Same med Code(s): F41.9 - Anxiety disorder, unspecified
[2019-03-11] MEDS ORDERED: BISACODYL 10 MG SUPPOSITORY RECTAL ONE (12:43)
--- NOTE | 2019-03-11 12:49 | PDOC(PROG) ---
Subjective Post Op Day: 5 Pain Management: IV Toradol, Tylenol, and Dilaudid Walker Catheter: No Flatus: Yes Diet: Clear Liquids Ambulating: Yes Date of Service: 03/11/19 Time of Service: 12:30 Interval History: Seems to be doing better every day. Continues to pass gas. Had a small smear of stool only. He is ambulating. He is voiding. His urine output is up. His weight is down. He is feeling gurgling in his abdomen. He has tried a little apple juice this morning but mostly ice chips. He has no new complaints. Objective : Data - Labs CBC and BMP: 03/10/19 04:07 03/11/19 05:20 - Vital Signs Vital Signs and I&O: Vital Signs - Last Taken Temperature 97 F 03/11/19 09:00 Pulse Rate 54 L 03/11/19 09:00 Respiratory Rate 20 03/11/19 09:00 Blood Pressure 171/101 03/11/19 09:00 Pulse Ox 95 03/11/19 09:00 Intake and Output (24hr x 4 totals) 03/09/19 03/10/19 03/11/19 03/12/19 05:59 05:59 05:59 05:59 Intake Total 3720 / 3720 3194 / 3194 3805 / 3805 400 / 400 Output Total 1900 / 1900 2775 / 2775 3050 / 3050 1400 / 1400 Balance 1820 / 1820 419 / 419 755 / 755 -1000 / -1000 Objective : Exam - General General Appearance: No Acute Distress, Cooperative - Respiratory Respiratory Exam: Clear to Auscultation - Bilaterally, Breathing Non Labored - Cardiovascular Cardiovascular Exam: RRR, No Murmur - GI/Abdominal GI/Abdominal Exam: Non Distended, Soft Additional GI/Abdominal Exam Details: The incision looks good. The wound has been redressed. The abdomen is soft. It is flatter. There are some bowel tones but they remained hypoactive. He has some incisional tenderness. No sign of a wound infection. - Neurological Neurological Exam: Alert, Oriented x 3 - Psychiatric Psychiatric Exam: Normal Affect, Normal Mood Assessment and Plan - Patient Problems (1) Partial obstruction of small intestine Current Visit: Yes Status: Acute Priority: High Onset Date: 03/03/19 Comment: Slowly improving. Continue postoperative care. Await return of GI function. Discussed with the patient. Dr. Darden will be covering tomorrow and this weekend. The patient understands. Code(s): K56.600 - Partial intestinal obstruction, unspecified as to cause
[2019-03-11 13:34] LABS: DRVVT SCREEN RATIO 1.1
[2019-03-11 13:35] LABS: THROMBIN TIME 19 sec
[2019-03-11 13:36] LABS: FIBRIONGEN EQUIVALENT UNITS 0.80 mcg/mL FEU
[2019-03-11 13:37] LABS: SOLUBLE FIBRIN MONOMER <8 mcg/mL
[2019-03-11] MEDS: traZODone Tab 50 MG TAB PO SCH (20:34)
[2019-03-11] MEDS: Fat Emulsions Inj 20% 250 ML IV SCH (20:34)
[2019-03-12] MEDS: Metoclopramide Inj 10 MG/2 ML VIAL IVP SCH ×4 (02:38→19:44)
[2019-03-12] MEDS: Acetaminophen 1000mg Inj 1,000 MG/100 ML VIAL IV SCH ×3 (02:38→19:44)
[2019-03-12] MEDS: KETOROLAC 30 MG/1 ML VIAL IVP SCH ×2 (04:17→10:25)
[2019-03-12 04:39] LABS: Hematocrit [HCT] 34.6 % (42.0-52.0); Hemoglobin [HGB] 12.1 g/dL (14.0-18.0); MEAN CORPUSCULAR HEMOGLOBIN 30.5 PG (27-31); MEAN CORPUSCULAR VOLUME 87.2 FL (80-90); MEAN PLATELET VOLUME 8.8 FL (7.4-12.2); RED BLOOD COUNT 3.97 10^6/uL (4.70-6.10)
[2019-03-12 05:14] LABS: PLATELET MORPHOLOGY COMMENT NORMAL MORPHOLOGY (NORM); RBC MORPHOLOGY COMMENT NORMAL MORPHOLOGY (NORM); WBC MORPHOLOGY COMMENT NORMAL MORPHOLOGY (NORM)
[2019-03-12 05:15] LABS: BAND NEUTROPHILS % 0 % (0-10); BASOPHILS % (MANUAL) 1 % (0-1); BLOOD UREA NITROGEN 9 mg/dL (7-22); EOSINOPHILS % (MANUAL) 2 % (0-8); METAMYELOCYTES % 0 %; MONOCYTES % (MANUAL) 6 % (0-12); MYELOCYTES % 0 %; NEUTROPHILS % (MANUAL) 76 % (50-80); PROMYELOCYTES % 0 %
[2019-03-12] MEDS: HYDROmorphone 2 MG/1 ML IVP PRN ×4 (07:14→21:11)
[2019-03-12] MEDS: VENLAFAXINE HCL XR 150 MG CAP PO SCH (08:44)
[2019-03-12] MEDS: PANTOPRAZOLE IV 40 MG VIAL IVP SCH (08:45)
[2019-03-12] MEDS: ENOXAPARIN SODIUM 40 MG/0.4 ML SYRINGE SUBCUT SCH (08:46)
--- NOTE | 2019-03-12 09:56 | DI ---
[facility]UB and [facility] ABDOMEN, 03/12/2019 8:20 AM: Clinical History: Postop abdominal surgery for partial small bowel obstruction. Previous Exam: 03/10/2019. Soft Tissues: Normal. Bowel Pattern: There are loops of small bowel in the left upper quadrant with air-fluid levels simila r to the previous exam. Gas and stool is present throughout the colon in a different pattern indicati ng the patient is having bowel movements. The findings are more consistent with a postoperative ileus than bowel obstruction. Free Air: None. Ascites: None. Radiodensities: No abnormal radiodensities. Bones: Normal. Additional Findings: Minimal left lower lobe atelectasis and a left pleural effusion. Readin. Small loops of bowel with air-fluid fluid levels in the left upper quadrant similar to the previo us exam. The appearance is consistent with a postoperative ileus rather than a bowel obstruction. 2. Small left pleural effusion and left lower lobe atelectasis.
[2019-03-12] MEDS: Aa 3%/Electrolyte-Tpn/Gly 1,000 ML PRIMARY IV SCH ×2 (10:25→23:44)
--- NOTE | 2019-03-12 12:02 | PDOC(PROG) ---
Subjective Post Op Day: postop day 5 Flatus: Yes Diet: Clear Liquids Ambulating: Yes Date of Service: 03/12/19 Time of Service: 12:01 Interval History: Patient states that he is doing well. Nurses report he had a small bowel movement. Patient states he still passing flatus. Nurses report low-grade fever 100.1. Patient denies having any problems although nurses tell me he is using his pain medicine little bit more today. Patient tells me he feels more like muscle cramps Objective : Data - Labs CBC and BMP: 03/12/19 04:05 03/12/19 04:05 - Vital Signs Vital Signs and I&O: Vital Signs - Last Taken Temperature 100.1 F H 03/12/19 11:13 Pulse Rate 92 03/12/19 11:13 Respiratory Rate 18 03/12/19 11:13 Blood Pressure 147/97 03/12/19 11:13 Pulse Ox 93 03/12/19 11:13 Intake and Output (24hr x 4 totals) 03/10/19 03/11/19 03/12/19 03/13/19 05:59 05:59 05:59 05:59 Intake Total 3194 / 3194 3805 / 3805 3376 / 3376 884 / 884 Output Total 2775 / 2775 3050 / 3050 2725 / 2725 425 / 425 Balance 419 / 419 755 / 755 651 / 651 459 / 459 Objective : Exam - General General Appearance: No Acute Distress, Cooperative - Respiratory Respiratory Exam: Clear to Auscultation - Bilaterally - Cardiovascular Cardiovascular Exam: RRR - GI/Abdominal GI/Abdominal Exam: Normal Bowel Sounds, Non Tender, Non Distended, Soft Assessment and Plan - Patient Problems (1) Small bowel obstruction Current Visit: Yes Status: Acute Code(s): K56.609 - Unspecified intestinal obstruction, unspecified as to partial versus complete obstruction - Assessment / Plan Additional Assessment/Plan Details: Postop day 5 with an ileus. Override do think he is doing well but with a low-grade fever and his white count going up to 10.99 I do think we need to look for a source. Today his incision looks fine there is no signs of infection. Will check a urinalysis. The labs in the morning. I am going to advance his diet
--- NOTE | 2019-03-12 13:05 | PDOC(PROG) ---
Date of Service: 03/12/19 Time of Service: 13:00 Interval History: Subjective Patient feels better than earlier he said. No vomiting. Did have a small bowel movement. Objective : Data - Labs CBC and BMP: 03/12/19 04:05 03/12/19 04:05 Objective : Exam - General General Appearance: No Acute Distress, Cooperative - Head Head Exam: Normal Inspection - Eye Eye Exam: Normal Appearance - Neck Neck Exam: Normal Inspection - Respiratory Respiratory Exam: Clear to Auscultation - Bilaterally - Cardiovascular Cardiovascular Exam: RRR - GI/Abdominal GI/Abdominal Exam: Non Tender, Non Distended, Soft Additional GI/Abdominal Exam Details: Still sluggish bowel movements - Rectal Rectal Exam: Deferred - External Exam: Deferred - Extremities Extremities Exam: Normal Inspection Assessment and Plan - Patient Problems (1) Small bowel obstruction Current Visit: Yes Status: Acute Comment: Status post surgery, still having an ileus. Dr. Darden advanced his diet to full liquid. We'll see how things go the next day or 2. Code(s): K56.609 - Unspecified intestinal obstruction, unspecified as to partial versus complete obstruction (2) Hypertension Current Visit: Yes Status: Chronic Comment: He brought his the medication so put him back on his previous medications will watch his blood pressure. Code(s): I10 - Essential (primary) hypertension Qualifiers: Hypertension type: essential hypertension Qualified Code(s): I10 - Essential (primary) hypertension (3) Anxiety Current Visit: Yes Status: Chronic Comment: Same med Code(s): F41.9 - Anxiety disorder, unspecified
[2019-03-12 18:57] LABS: BILIRUBIN,URINE NEGATIVE (NEG); CLARITY,URINE CLEAR (CLEAR); COLOR,URINE YELLOW (Y); GLUCOSE, URINE (UA) NEGATIVE (NEG); OCCULT BLOOD,URINE Trace-intact (NEG); PROTEIN,URINE TRACE mg/dl (NEG)
[2019-03-12 19:09] LABS: BACTERIA,URINE RARE; RBC,URINE 0-1 /hpf; SQUAMOUS EPITHELIAL CELL,UR RARE; URINE SAMPLE TYPE CLEAN CATCH URINE; WBC,URINE 0-1
[2019-03-12] MEDS: traZODone Tab 50 MG TAB PO SCH (21:02)
[2019-03-12] MEDS: Fat Emulsions Inj 20% 250 ML IV SCH (21:03)
[2019-03-13] MEDS: HYDROmorphone 2 MG/1 ML IVP PRN ×5 (02:21→12:13)
[2019-03-13] MEDS: Metoclopramide Inj 10 MG/2 ML VIAL IVP SCH ×4 (02:21→20:35)
[2019-03-13] MEDS: Acetaminophen 1000mg Inj 1,000 MG/100 ML VIAL IV SCH ×2 (02:21→11:36)
[2019-03-13 04:54] LABS: BASOPHILS # (AUTO) 0.04 10*3/UL; BASOPHILS % (AUTO) 0.3 % (0-1); EOSINOPHILS # (AUTO) 0.11 10*3/UL; EOSINOPHILS % (AUTO) 0.8 % (0-8); Hematocrit [HCT] 36.4 % (42.0-52.0); Hemoglobin [HGB] 12.5 g/dL (14.0-18.0); LYMPHOCYTES # (AUTO) 0.97 10*3/uL; MEAN CORPUSCULAR HGB CONC 34.3 g/dL (33-37); MEAN CORPUSCULAR VOLUME 87.5 FL (80-90); MEAN PLATELET VOLUME 8.7 FL (7.4-12.2); MONOCYTES # (AUTO) 0.94 10*3/UL (0.3-0.8); MONOCYTES % (AUTO) 7.1 % (5-15); NEUTROPHILS # (AUTO) 11.12 10*3/UL; RED BLOOD COUNT 4.16 10^6/uL (4.70-6.10)
[2019-03-13 05:04] LABS: BLOOD UREA NITROGEN 14 mg/dL (7-22)
[2019-03-13 05:42] LABS: PLATELET MORPHOLOGY COMMENT NORMAL MORPHOLOGY (NORM); RBC MORPHOLOGY COMMENT NORMAL MORPHOLOGY (NORM); WBC MORPHOLOGY COMMENT NORMAL MORPHOLOGY (NORM)
[2019-03-13] MEDS: PANTOPRAZOLE IV 40 MG VIAL IVP SCH (08:29)
[2019-03-13] MEDS: VENLAFAXINE HCL XR 150 MG CAP PO SCH (08:30)
[2019-03-13] MEDS: ENOXAPARIN SODIUM 40 MG/0.4 ML SYRINGE SUBCUT SCH (08:30)
--- NOTE | 2019-03-13 09:20 | DI ---
EXAM: XR Abdomen Complete, 2 or More Views. CLINICAL HISTORY: Leukocytosis and ileus TECHNIQUE: Frontal view of the abdomen/pelvis with upright view of the abdomen. COMPARISON: 03/12/19 at 0922 hrs. FINDINGS: Free air: None. Gastrointestinal tract: Again seen are distended loops of bowel throughout the abdomen, with air-fluid levels. Bowel distention is slightly increased when compared to the prior exam performed yesterday morning. Postsurgical changes again seen within the lower abdomen. Gas is identified within the colon and rectal vault. Bones: Unremarkable. No acute fracture. IMPRESSION: Gaseous distention of bowel loops within the abdomen with fluid levels seen on the upright view. Some gas seen within the colon and rectum. Findings are most likely due to a postoperative adynamic ileus.
--- NOTE | 2019-03-13 09:37 | PDOC(PROG) ---
Subjective Post Op Day: postop day 7 Pain Management: IV Dilaudid Walker Catheter: No Flatus: Yes Diet: full liquid Date of Service: 03/13/19 Time of Service: 09:32 Interval History: Patient states that he feels better than yesterday. He is passing gas but has not had no further bowel movements injection morning. Objective : Data - Labs CBC and BMP: 03/13/19 04:20 03/13/19 04:20 - Vital Signs Vital Signs and I&O: Vital Signs - Last Taken Temperature 96.7 F L 03/13/19 06:41 Pulse Rate 70 03/13/19 07:00 Respiratory Rate 16 03/13/19 06:41 Blood Pressure 138/89 03/13/19 06:41 Pulse Ox 91 03/13/19 06:41 Intake and Output (24hr x 4 totals) 03/11/19 03/12/19 03/13/19 03/14/19 05:59 05:59 05:59 05:59 Intake Total 3805 / 3805 3376 / 3376 3152 / 3152 43.8 / 43.8 Output Total 3050 / 3050 2725 / 2725 950 / 950 350 / 350 Balance 755 / 755 651 / 651 2202 / 2202 -306.2 / -306.2 Objective : Exam - General General Appearance: No Acute Distress, Cooperative - Respiratory Respiratory Exam: Breathing Non Labored - Cardiovascular Cardiovascular Exam: RRR, No Murmur - GI/Abdominal GI/Abdominal Exam: Normal Bowel Sounds, Non Tender, Non Distended Additional GI/Abdominal Exam Details: Patient has some tenderness along the incision but otherwise no pain really. His incision there is some redness where the tape was but the midline incision is nonerythematous. He has little bloody drainage on the dressing. Assessment and Plan - Patient Problems (1) Small bowel obstruction Current Visit: Yes Status: Acute Code(s): K56.609 - Unspecified intestinal obstruction, unspecified as to partial versus complete obstruction - Assessment / Plan Additional Assessment/Plan Details: Patient has an increased white count of 13.2. I have not found a source. Urinalysis is unremarkable yesterday. Patient's flatplate and upright of the abdomen show no free air. He has air into the rectum. Does distention. X-rays look like a ileus. Chest x-ray shows no evidence of pneumonia. I am uncertain gentleman has an increase white count. I am going to put him On empiric antibiotics until workup is done. We'll start him on Invanz 1 g every 24 hours. Diflucan 400 mg today. Will get a CT scan with IV and oral contrast.
--- NOTE | 2019-03-13 09:51 | DI ---
EXAM: XR Chest, 2 Views. CLINICAL HISTORY: Leukocytosis. TECHNIQUE: Frontal and lateral views of the chest. COMPARISON: 03/06/19. FINDINGS: Lungs: No evidence of airspace consolidation. Moderate atelectasis seen in the left lung base. Pleural spaces: Small left pleural effusion. No pneumothorax. Heart: Unremarkable. No cardiomegaly. Mediastinum: Unremarkable. Bones: Unremarkable. No acute fracture. IMPRESSION: Left pleural effusion and left basilar atelectasis.
[2019-03-13] MEDS ORDERED: Ertapenem Inj 1 GM in Sodium Chloride 0.9% 100 ML IV SCH (10:00)
[2019-03-13] MEDS ORDERED: Fluconazole 400mg (Premix) 400 MG/200 ML BAG IV ONE (10:30)
--- NOTE | 2019-03-13 11:45 | DI ---
EXAM: CT Abdomen and Pelvis With Intravenous Contrast CLINICAL HISTORY: increased leukocytosis postop ileus Physician Notes: IV and oral contrast.: TECHNIQUE: Axial computed tomography images of the abdomen and pelvis with intravenous contrast. 75 ml Isovue 300 Iv contrast, 30 ml Gastroview in 900 ml water oral contrast CTDI is 8 mGy and DLP is 463.80 mGy-cm. Coronal and sagittal images were obtained and reviewed. COMPARISON: CT abdomen and pelvis dated 03/04/19 FINDINGS: Lung bases: Dependent consolidation in bilateral lung bases may represent atelectasis versus pneumonia. Pleural space: Small bilateral pleural effusions. ABDOMEN: Liver: Scattered tiny 3-4 mm hypodensities throughout the liver, too small to further characterize, likely small simple cysts. Gallbladder and bile ducts: Unremarkable. No calcified stones. No ductal dilation. Pancreas: Unremarkable. No mass. No ductal dilation. Spleen: Unremarkable. No splenomegaly. Adrenals: Unremarkable. No mass. Kidneys and ureters: Unremarkable. No solid mass. No hydronephrosis. Stomach and bowel: Postsurgical changes with anastomosis sutures seen in small bowel and separately and the rectosigmoid region. Diffuse distention of colonic and small bowel loops with air-fluid levels, without wall thickening or definite transition point, likely representing postoperative ileus and/or mild constipation. PELVIS: Appendix: No findings to suggest acute appendicitis. Bladder: Unremarkable. No visible stones. Reproductive: Incidental note of prostate gland calcifications. The prostate gland and seminal vesicles otherwise appear unremarkable. ABDOMEN and PELVIS: Intraperitoneal space: Mild volume of free fluid in the abdomen and pelvis. No free air. Bones/joints: No acute fracture. No dislocation. Soft tissues: Surgical lencho in the anterior abdominal and pelvic midline. Vasculature: Unremarkable. No abdominal aortic aneurysm. Lymph nodes: Unremarkable. No enlarged lymph nodes. IMPRESSION: 1. Postsurgical changes with anastomosis sutures seen in small bowel and the rectosigmoid region. 2. Diffuse distention of colonic and small bowel loops with air-fluid levels, without wall thickening or definite transition point, likely representing postoperative ileus and mild constipation. 3. Small bilateral pleural effusions. Dependent consolidation in bilateral lung bases may represent atelectasis versus pneumonia. 4. Mild volume of free fluid in the abdomen and pelvis. 5. Scattered tiny 3-4 mm hypodensities throughout the liver, too small to further characterize, likely small simple cysts.
--- NOTE | 2019-03-13 12:27 | PDOC(PROG) ---
Date of Service: 03/13/19 Time of Service: 12:30 Interval History: Subjective Patient said he is tired because of multiple trips to radiology. He is still passing gas no bowel movement yet. Objective : Data - Labs CBC and BMP: 03/13/19 04:20 03/13/19 04:20 Objective : Exam - General General Appearance: No Acute Distress - Head Head Exam: Normal Inspection - Eye Eye Exam: Normal Appearance - ENT ENT Exam: Normal Exam - Neck Neck Exam: Normal Inspection - Respiratory Respiratory Exam: Clear to Auscultation - Bilaterally - Cardiovascular Cardiovascular Exam: RRR - GI/Abdominal GI/Abdominal Exam: Non Tender, Non Distended, Soft, No Organomegaly Additional GI/Abdominal Exam Details: Sluggish bowel sounds - Rectal Rectal Exam: Deferred - External Exam: Deferred - Extremities Extremities Exam: Normal Inspection - Back Back Exam: Normal Inspection - Neurological Neurological Exam: Alert, Oriented x 3, CN II-XII Intact, No Facial Droop, Speech Intact / Clear, Moves All Extremities Equally - Psychiatric Psychiatric Exam: Normal Affect Assessment and Plan - Patient Problems (1) Small bowel obstruction Current Visit: Yes Status: Acute Comment: Status post surgery now with postoperative ileus. Management per Dr. Darden. Because of the rising white count Dr. Darden started him on antibiotics. He did order a CT of the abdomen. Code(s): K56.609 - Unspecified intestinal obstruction, unspecified as to partial versus complete obstruction (2) Hypertension Current Visit: Yes Status: Chronic Comment: Same medications Code(s): I10 - Essential (primary) hypertension Qualifiers: Hypertension type: essential hypertension Qualified Code(s): I10 - Essential (primary) hypertension (3) Anxiety Current Visit: Yes Status: Chronic Comment: Same meds. Code(s): F41.9 - Anxiety disorder, unspecified
[2019-03-13] MEDS ORDERED: HYDROcodone-APAP 7.5 MG-325 MG TABLET PO PRN (13:23)
[2019-03-13] MEDS: Aa 3%/Electrolyte-Tpn/Gly 1,000 ML PRIMARY IV SCH (16:49)
[2019-03-13] MEDS ORDERED: ONDANSETRON 4 MG/2 ML VIAL IVP ONE (17:31)
[2019-03-13] MEDS: oxyCODONE-ACETAMINOPHEN 5-325 TAB PO PRN (18:59)
[2019-03-13] MEDS: traZODone Tab 50 MG TAB PO SCH (20:35)
[2019-03-14] MEDS: Metoclopramide Inj 10 MG/2 ML VIAL IVP SCH ×2 (02:49→08:51)
[2019-03-14 04:44] LABS: BASOPHILS # (AUTO) 0.02 10*3/UL; BASOPHILS % (AUTO) 0.2 % (0-1); EOSINOPHILS # (AUTO) 0.22 10*3/UL; EOSINOPHILS % (AUTO) 2.2 % (0-8); Hematocrit [HCT] 33.8 % (42.0-52.0); Hemoglobin [HGB] 11.3 g/dL (14.0-18.0); LYMPHOCYTES # (AUTO) 1.46 10*3/uL; MEAN CORPUSCULAR HEMOGLOBIN 29.7 PG (27-31); MEAN CORPUSCULAR HGB CONC 33.4 g/dL (33-37); MEAN CORPUSCULAR VOLUME 88.7 FL (80-90); MEAN PLATELET VOLUME 8.7 FL (7.4-12.2); MONOCYTES # (AUTO) 0.93 10*3/UL (0.3-0.8); MONOCYTES % (AUTO) 9.2 % (5-15); NEUTROPHILS # (AUTO) 7.45 10*3/UL; NEUTROPHILS % (AUTO) 73.7 % (50-80); RED BLOOD COUNT 3.81 10^6/uL (4.70-6.10)
[2019-03-14 04:54] LABS: PLATELET MORPHOLOGY COMMENT NORMAL MORPHOLOGY (NORM); RBC MORPHOLOGY COMMENT NORMAL MORPHOLOGY (NORM); WBC MORPHOLOGY COMMENT NORMAL MORPHOLOGY (NORM)
[2019-03-14 05:07] LABS: BLOOD UREA NITROGEN 18 mg/dL (7-22); BUN/CREATININE RATIO 25.71 (6-20)
[2019-03-14] MEDS: oxyCODONE-ACETAMINOPHEN 5-325 TAB PO PRN ×3 (06:43→11:32)
[2019-03-14] MEDS ORDERED: Fluconazole 200mg (Premix) 200 MG/100 ML BAG IV ONE (08:15)
[2019-03-14] MEDS: VENLAFAXINE HCL XR 150 MG CAP PO SCH (08:51)
[2019-03-14] MEDS: ENOXAPARIN SODIUM 40 MG/0.4 ML SYRINGE SUBCUT SCH (08:51)
[2019-03-14] MEDS ORDERED: MAGNESIUM 400 MG/5 ML - 30 ML (MILK OF MAGNESIA) PO ONE (11:44)
[2019-03-14 11:46] VITALS: BP 115/80; RESP 18; TEMP 97.5; O2SAT 96
--- NOTE | 2019-03-14 12:24 | PDOC(PROG) ---
Subjective Post Op Day: postop day 8 Flatus: Yes Date of Service: 03/14/19 Time of Service: 12:19 Interval History: Patient states that he feels better. Still passing a lot more gas. No bowel movements since of the day. Objective : Data - Labs CBC and BMP: 03/14/19 04:05 03/14/19 04:05 - Vital Signs Vital Signs and I&O: Vital Signs - Last Taken Temperature 97.5 F 03/14/19 11:45 Pulse Rate 67 03/14/19 11:45 Respiratory Rate 18 03/14/19 11:45 Blood Pressure 115/80 03/14/19 11:45 Pulse Ox 96 03/14/19 11:45 Intake and Output (24hr x 4 totals) 03/12/19 03/13/19 03/14/19 03/15/19 05:59 05:59 05:59 05:59 Intake Total 3376 / 3376 3152 / 3152 2374.8 / 2374.8 Output Total 2725 / 2725 950 / 950 1276 / 1276 Balance 651 / 651 2202 / 2202 1098.8 / 1098.8 Objective : Exam - General General Appearance: No Acute Distress - Neck Neck Exam: Normal Inspection, Full ROM - Respiratory Respiratory Exam: Clear to Auscultation - Bilaterally, Breathing Non Labored - Cardiovascular Cardiovascular Exam: RRR - GI/Abdominal GI/Abdominal Exam: Normal Bowel Sounds, Non Tender, Non Distended, Soft Assessment and Plan - Patient Problems (1) Small bowel obstruction Current Visit: Yes Status: Acute Code(s): K56.609 - Unspecified intestinal obstruction, unspecified as to partial versus complete obstruction - Assessment / Plan Additional Assessment/Plan Details: Overall patient is doing very well will give him milk of magnesia helps to my bowels. Patient would like to be discharged home and I agree that he can go home. He's call if he is having any problems. Patient does not live far away from the hospital that get back if he has a problem. CT scan done yesterday did not show any acute problems
--- NOTE | 2019-03-14 12:44 | DCSUMMARY ---
Hospitalization Summary Hospital Course: Final Discharge Diagnosis: Small bowel obstruction Diagnostic Data, Laboratory Data, and Procedures of Signifigance: CBC and BMP 03/14/19 04:05 03/14/19 04:05 History and Physical pertinent to Admission: Past Medical History Medical History: Hypertension and anxiety Surgical History: Sigmoid colectomy and appendectomy, colonoscopy to repair some sort of anastomotic issue Pertinent Family History: No family history of colon cancer or blood clots. Past Social History: Does not smoke or drink alcohol. Recently . Has 2 children described as healthy. 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 Tobacco Use: Never Smoker Course of Hospitalization: Is a very nice 48-year-old gentleman with history of partial sigmoid resection about [address] Beach did the clotting workup which was negative patient comes in with the small bowel obstruction was taken to the ER with status post small bowel resection postop complication with ileus now resolved seen by Dr. tao Cross patient is passing gas and tolerating food and he is being discharged home by Dr. tao Cross please see his note and operative note for details On the date of discharge, the patient was examined: Gen.: No acute distress, alert, nontoxic Heart: Regular rate and rhythm, no murmurs, clicks, gallops, or rubs Lungs: Clear to auscultation bilaterally, breathing is nonlabored Abdomen/GI: Normal tones on auscultation, soft, nontender, nondistended Musculoskeletal/extremities: No clubbing, cyanosis, or edema Vitals reviewed and are listed below Vital Signs (24 hrs) 03/13/19 17:00 03/13/19 19:50 03/14/19 01:00 Temperature 97 F 100.8 F H 98.6 F Pulse Rate [Pulse Oximeter] 76 85 80 Respiratory Rate 18 18 18 Blood Pressure [Right Arm] 128/83 129/85 129/76 Pulse Ox 93 91 93 03/14/19 05:20 03/14/19 07:15 03/14/19 11:45 Temperature 98.3 F 97.1 F 97.5 F Pulse Rate [Pulse Oximeter] 61 69 67 Respiratory Rate 14 16 18 Blood Pressure [Right Arm] 125/71 127/83 115/80 Pulse Ox 93 90 96 Assessment and Plan: 1. As per discharge assessments above 2. Disposition: Home 3. Condition on discharge, stable and improved. 4. Diet: regular diet 5. Activities: resume normal activities 6. Follow-Up: 1. PCP 2. 7. Medications at the Time of Discharge: Home Medications Medication Instructions Recorded Confirmed Type amlodipine 10 mg tablet 10 mg PO QDAY #30 tab 02/04/19 03/04/19 Rx diclofenac 1 % topical gel 2 g TOPICAL QID PRN #100 g 03/02/19 03/04/19 Rx nebivolol 20 mg tablet 20 mg PO BID #60 tab 03/02/19 03/04/19 Rx trazodone 50 mg tablet 50 mg PO QDAY #30 tab 03/02/19 03/04/19 Rx venlafaxine ER 150 mg 150 mg PO QDAY #30 cap 03/02/19 03/04/19 Rx capsule,extended release 24 hr oxyCODONE/APAP 5/325 Tab 1 - 2 tab PO Q4H PRN #30 tab 03/14/19 Rx [Percocet 5/325 Tab] 8. Time, care, counseling and coordination of care for this discharge is greater than 30 minutes. Exam - Vitals Vital Signs: Vital Signs Temperature 97.5 F Temperature Source Temporal Artery Scan Pulse Rate [Apical] 70 Pulse Rate [Pulse Oximeter] 67 Pulse Rate 78 Respiratory Rate 18 Blood Pressure [Right Arm] 115/80 Blood Pressure [Left Arm] 160/111 Blood Pressure 117/67 Pulse Ox 96 Oxygen Flow Rate 0 Oxygen Delivery Method Room Air Height 6 ft 1 in Weight 181 lb 6.4 oz
== END 2019-03-14 12:38 | disposition home or self-care (01) | DRG 331 ==
LOC: ER 09:49 → MED/SURG 14:13 → OPS 03-06 12:02 → MED/SURG 03-06 16:38
PROVIDERS: ADMIT Family Medicine; ATTEND Family Medicine
PROC: GELAPAR (ICD-10-PCS; 2019-03-06 12:30)